=== PATIENT | female | born 1930 | race Caucasian/White ===

== ENCOUNTER 2018-05-09 21:38 | Observation (INO) | payer MEDICARE ==
[2018-05-09] MEDS ORDERED: NS 0.9% 500 ML* 500 ML IV ONE (22:11)
[2018-05-09] MEDS ORDERED: Metoprolol Tartrate IV* 1 MG/ML 5 ML VIAL IV ONE (22:11)
[2018-05-09 22:44] LABS: ABS Basophils 0 10^3/ul (0-0.2); ABS Eosinophils 0 10^3/ul (0-0.6); ABS Lymphocytes 1.3 10^3/ul (1.0-4.8); ABS Monocytes 0.7 10^3/ul (0-0.8); ABS Neutrophils 3.5 10^3/ul (1.5-7.7); ABS Nucleated RBC 0 10^3/ul; Eosinophil % 0.3 % (0-6); Hematocrit 35 % (35-47); Hemoglobin 11.8 g/dl (12.0-16.0); Lymphocyte % 23.8 % (25-47); Mean Corpuscular HGB Conc 34 g/dl (31-36); Mean Corpuscular Hemoglobin 33 pg (27-31); Mean Corpuscular Volume 98 fL (80-97); Mean Platelet Volume 8.7 um3 (7.4-10.4); Nucleated Red Blood Cells % 0.1; Platelet Count 165 10^3/ul (150-450); Red Blood Count 3.52 10^6/ul (4.00-5.40); Red Cell Distribution Width 13 % (10.5-15); White Blood Count 5.6 10^3/ul (3.5-10.8)
[2018-05-09 23:02] LABS: EGFR Non-African American 46.5 (>60)
[2018-05-09] MEDS ORDERED: Nitroglycerin 2% OINT* 1 GM PAK TOPICAL ONE (23:20)
--- NOTE | 2018-05-10 00:24 | HP ---
H&P (Free Text) History and Physical: PCP: Chandler Duncan MD Date/Time: 05/10/2018 0020 CC: chest pain HPI: Mrs Jameson is an 88YO female poor historian HX HTN, palpitations, GERD who presents with gradual onset of moderate non-radiating chest pressure diffusely associated with palpitations, but no SOB, sweating, N/V, or light-headedness. She did note some facial flushing, but no cough, congestion, F/C, headache, or other issues. She noted the pressure was better sitting, worse ambulating. It had resolved earlier in her ED stay, but returned when ambulating to the restroom. She denies CAD/AR or other cardiac history. PMedHx HTN palpitations GERD Medications Nursing to reconcile. Allergies propoxyphene [From Darvon] Allergy (Verified 05/09/18 22:23) GI Upset PSurgHx OU cataract extractions tonsillectomy appendectomy SocHx: mild smoking HX remotely quit, rare alcohol, no recreational drugs; lives with her youngest son; full code status FamHx: reviewed & non-contributory ROS: as above, otherwise reviewed and all were negative vitals: Vital Signs Temp 36.8 C 05/09/18 21:51 Pulse 85 05/10/18 00:00 Resp 16 05/10/18 00:00 BP 152/62 05/09/18 23:57 Pulse Ox 99 05/10/18 00:00 Intake & Output 05/09/18 05/09/18 05/10/18 11:59 23:59 11:59 Weight 48.988 kg Constitutional: NAD, normally developed, well-nourished elderly white female HEENM: atraumatic; sclera/conjunctiva: anicteric/clear; hearing: clinically moderately decreased; oropharynx: clear, mucosa moist Neck: soft tissue: non-tender; thyroid: normal Pulmonary: clear to auscultation bilaterally, good aeration, no accessory muscle use CV: RR/RR, normal S1S2, no carotid bruit, no jugular venous distention, 2+ B DP/ PT, no edema Abdominal: soft, non-distended, non-tender, no rebound/guarding/rigidity, normoactive bowel sounds, no hepatosplenomegaly or masses, no costovertebral angle tenderness Musculoskeletal: general: grossly intact, non-tender Integumental: normal appearance and texture of expose skin Psychiatric orientation: AA&O to PPS affect: calm mood: cooperative eye contact: good content: somewhat reliable memory: mildly impaired responses: timely insight: fair to good Testing: Lab Results 05/09/18 05/09/18 05/09/18 Range/Units 22:37 22:37 22:37 WBC 5.6 (3.5-10.8) 10^3/ul RBC 3.52 L (4.00-5.40) 10^6/ul Hgb 11.8 L (12.0-16.0) g/dl Hct 35 (35-47) % MCV 98 H (80-97) fL MCH 33 H (27-31) pg MCHC 34 (31-36) g/dl RDW 13 (10.5-15) % Plt Count 165 (150-450) 10^3/ul MPV 8.7 (7.4-10.4) um3 Neut % (Auto) 63.5 (38-83) % Lymph % (Auto) 23.8 L (25-47) % [place] % (Auto) 11.8 H (0-7) % Eos % (Auto) 0.3 (0-6) % Baso % (Auto) 0.6 (0-2) % Absolute Neuts (auto) 3.5 (1.5-7.7) 10^3/ul Absolute Lymphs (auto) 1.3 (1.0-4.8) 10^3/ul Absolute Monos (auto) 0.7 (0-0.8) 10^3/ul Absolute Eos (auto) 0 (0-0.6) 10^3/ul Absolute Basos (auto) 0 (0-0.2) 10^3/ul Absolute Nucleated RBC 0 10^3/ul Nucleated RBC % 0.1 Sodium 134 L (135-145) mmol/L Potassium 4.1 (3.5-5.0) mmol/L Chloride 98 L (101-111) mmol/L Carbon Dioxide 28 (22-32) mmol/L Anion Gap 8 (2-11) mmol/L BUN 23 (6-24) mg/dL Creatinine 1.11 H (0.51-0.95) mg/dL Est GFR ( Amer) 56.3 (>60) Est GFR (Non-Af Amer) 46.5 (>60) BUN/Creatinine Ratio 20.7 H (8-20) Glucose 114 H (70-100) mg/dL Lactic Acid 1.2 (0.5-2.0) mmol/L Calcium 9.7 (8.6-10.3) mg/dL Total Bilirubin 0.50 (0.2-1.0) mg/dL AST 24 (13-39) U/L ALT 12 (7-52) U/L Alkaline Phosphatase 77 (34-104) U/L Troponin I 0.04 H* (<0.04) ng/mL Total Protein 7.2 (6.4-8.9) g/dL Albumin 4.1 (3.2-5.2) g/dL Globulin 3.1 (2-4) g/dL Albumin/Globulin Ratio 1.3 (1-3) TSH 3.03 (0.34-5.60) mcIU/mL ECG, personally reviewed: NSR rate 86, no ischemia CXR, personally reviewed: stigmata of COPD, no acute process Impression: 88F HX HTN, palpitations, GERD presenting with atypical chest pain for r/o ACS DIAGNOSIS & PLAN Primary chest pain r/o ACS : telemetry : aspirin : metoprolol given in ED : supplemental oxygen : trend troponin : chemical NST in AM : supportive care Secondary HTN : review meds once reconciled GERD : omeprazole Admission Rational: observation for r/o ACS DVTp: heparin SQ Code Status: full HCP: sonTopher
[2018-05-10] MEDS ORDERED: Albuterol 2.5 MG/3 ML NEB.SOL* (0.083%) INH PRN (01:05)
[2018-05-10] MEDS ORDERED: Acetaminophen TAB* 325 MG PO PRN (01:05)
[2018-05-10] MEDS ORDERED: Ondansetron ODT TAB* 4 MG PO PRN (01:32)
[2018-05-10] MEDS ORDERED: Melatonin 3 MG TAB PO PRN (01:32)
[2018-05-10] MEDS ORDERED: NS 0.9% 1000 ML* 1,000 ML IV SCH (01:45)
[2018-05-10] MEDS: Aspirin 81 mg CHEW TAB* 81 MG TAB.CHEW PO ONE ×2 (02:23→02:32)
[2018-05-10] MEDS ORDERED: Omeprazole CAP* 20 MG PO SCH (06:00)
--- NOTE | 2018-05-10 06:11 | ED ---
David Ravi Tiffany, scribed for Lam Wheeler MD on 05/09/18 at 2213 . HPI Chest Pain - HPI Summary HPI Summary: 88 year old F BIBA to [facility] complains of heart pounding since 20:00 while standing in the dining room. Symptoms aggravated by nothing. Symptoms alleviated by nothing. Patient reports chest pressure below sternum, fast heart rate. Denies SOB, diaphoresis, dizziness. Given 324mg aspirin en route. - History of Current Complaint Chief Complaint: EDChestWallPain Time Seen by Provider: 05/09/18 21:58 Hx Obtained From: Patient Onset/Duration: Started Hours Ago - 20:00 today, Still Present Timing: Constant Character: Pounding, Pressure/Squeezing Aggravating Factor(s): Nothing Alleviating Factor(s): Nothing Associated Signs and Symptoms: Positive: Other: - chest pressure below sternum, fast heart rate. - Allergy/Home Medications Allergies/Adverse Reactions: Allergies Allergy/AdvReac Type Severity Reaction Status Date / Time propoxyphene [From Darvon] AdvReac GI Upset Verified 05/10/18 01:00 PMH/Surg Hx/FS Hx/Imm Hx Previously Healthy: No Cardiovascular History: Reports: Other Cardiovascular Problems/Disorders - heart murmur GI History: Reports: Hx Hiatal Hernia Musculoskeletal History: Reports: Hx Arthritis, Hx Osteoporosis - Surgical History Surgery Procedure, Year, and Place: Tonsillectomy as child. Appendectomy. Tubal ligation 1966. Angiogram 1996 Infectious Disease History: No Infectious Disease History: Denies: Traveled Outside the [place] in Last 30 Days - Family History Known Family History: Negative: Renal Disease, Blood Disorder - Social History Smoking Status (MU): Unknown if Ever Smoked Review of Systems Negative: Skin Diaphoresis Positive: Other - heart pounding, chest pressure below sternum, fast heart rate Negative: Shortness Of Breath Neurological: Negative - Dizziness All Other Systems Reviewed And Are Negative: Yes Physical Exam - Summary Physical Exam Summary: Appearance: Well appearing, no pain distress Skin: warm, dry, reflects adequate perfusion Head/face: normal Eyes: EOMI, KENDALL ENT: normal Neck: supple, non-tender Respiratory: CTA, breath sounds present Cardiovascular: Heart was occasionally irregular. No JVD Abdomen: non-tender, soft Bowel Sounds: present Musculoskeletal: normal, strength/ROM intact Neuro: normal, sensory motor intact, A&Ox3 Triage Information Reviewed: Yes Vital Signs On Initial Exam: Initial Vitals Temp Pulse Resp BP Pulse Ox 98.2 F 94 20 163/76 99 05/09/18 21:51 05/09/18 21:51 05/09/18 21:51 05/09/18 21:51 05/09/18 21:51 Vital Signs Reviewed: Yes Diagnostics - Vital Signs Vital Signs Temp Pulse Resp BP Pulse Ox 05/09/18 21:51 98.2 F 94 20 163/76 99 - Laboratory Lab Results: Lab Results 05/09/18 05/09/18 05/09/18 Range/Units 22:37 22:37 22:37 WBC 5.6 (3.5-10.8) 10^3/ul RBC 3.52 L (4.00-5.40) 10^6/ul Hgb 11.8 L (12.0-16.0) g/dl Hct 35 (35-47) % MCV 98 H (80-97) fL MCH 33 H (27-31) pg MCHC 34 (31-36) g/dl RDW 13 (10.5-15) % Plt Count 165 (150-450) 10^3/ul MPV 8.7 (7.4-10.4) um3 Neut % (Auto) 63.5 (38-83) % Lymph % (Auto) 23.8 L (25-47) % [place] % (Auto) 11.8 H (0-7) % Eos % (Auto) 0.3 (0-6) % Baso % (Auto) 0.6 (0-2) % Absolute Neuts (auto) 3.5 (1.5-7.7) 10^3/ul Absolute Lymphs (auto) 1.3 (1.0-4.8) 10^3/ul Absolute Monos (auto) 0.7 (0-0.8) 10^3/ul Absolute Eos (auto) 0 (0-0.6) 10^3/ul Absolute Basos (auto) 0 (0-0.2) 10^3/ul Absolute Nucleated RBC 0 10^3/ul Nucleated RBC % 0.1 Sodium 134 L (135-145) mmol/L Potassium 4.1 (3.5-5.0) mmol/L Chloride 98 L (101-111) mmol/L Carbon Dioxide 28 (22-32) mmol/L Anion Gap 8 (2-11) mmol/L BUN 23 (6-24) mg/dL Creatinine 1.11 H (0.51-0.95) mg/dL Est GFR ( Amer) 56.3 (>60) Est GFR (Non-Af Amer) 46.5 (>60) BUN/Creatinine Ratio 20.7 H (8-20) Glucose 114 H (70-100) mg/dL Lactic Acid 1.2 (0.5-2.0) mmol/L Calcium 9.7 (8.6-10.3) mg/dL Total Bilirubin 0.50 (0.2-1.0) mg/dL AST 24 (13-39) U/L ALT 12 (7-52) U/L Alkaline Phosphatase 77 (34-104) U/L Troponin I 0.04 H* (<0.04) ng/mL Total Protein 7.2 (6.4-8.9) g/dL Albumin 4.1 (3.2-5.2) g/dL Globulin 3.1 (2-4) g/dL Albumin/Globulin Ratio 1.3 (1-3) TSH 3.03 (0.34-5.60) mcIU/mL 05/10/18 Range/Units 00:51 WBC (3.5-10.8) 10^3/ul RBC (4.00-5.40) 10^6/ul Hgb (12.0-16.0) g/dl Hct (35-47) % MCV (80-97) fL MCH (27-31) pg MCHC (31-36) g/dl RDW (10.5-15) % Plt Count (150-450) 10^3/ul MPV (7.4-10.4) um3 Neut % (Auto) (38-83) % Lymph % (Auto) (25-47) % [place] % (Auto) (0-7) % Eos % (Auto) (0-6) % Baso % (Auto) (0-2) % Absolute Neuts (auto) (1.5-7.7) 10^3/ul Absolute Lymphs (auto) (1.0-4.8) 10^3/ul Absolute Monos (auto) (0-0.8) 10^3/ul Absolute Eos (auto) (0-0.6) 10^3/ul Absolute Basos (auto) (0-0.2) 10^3/ul Absolute Nucleated RBC 10^3/ul Nucleated RBC % Sodium (135-145) mmol/L Potassium (3.5-5.0) mmol/L Chloride (101-111) mmol/L Carbon Dioxide (22-32) mmol/L Anion Gap (2-11) mmol/L BUN (6-24) mg/dL Creatinine (0.51-0.95) mg/dL Est GFR ( Amer) (>60) Est GFR (Non-Af Amer) (>60) BUN/Creatinine Ratio (8-20) Glucose (70-100) mg/dL Lactic Acid (0.5-2.0) mmol/L Calcium (8.6-10.3) mg/dL Total Bilirubin (0.2-1.0) mg/dL AST (13-39) U/L ALT (7-52) U/L Alkaline Phosphatase (34-104) U/L Troponin I 0.09 H* (<0.04) ng/mL Total Protein (6.4-8.9) g/dL Albumin (3.2-5.2) g/dL Globulin (2-4) g/dL Albumin/Globulin Ratio (1-3) TSH (0.34-5.60) mcIU/mL Result Diagrams: 05/09/18 22:37 05/09/18 22:37 Lab Statement: Any lab studies that have been ordered have been reviewed, and results considered in the medical decision making process. - Radiology CXR Radiology Interpretation Completed By: ED Physician - Chronic changes, no acute changes. Pending official report. - EKG 22:25 Cardiac Rate: NL - 86 BPM EKG Rhythm: Sinus Rhythm ST Segment: Non-Specific EKG Interpretation: Baseline wander, artifact. Eschemia in inferior leads, no depression Re-Evaluation - Re-Evaluation First Eval Re-Evaluation Time: 23:20 Comment: No real changes to sypmtoms with beta scott. Patient was feeling fine but then got up and felt the same heart pounding. Chest Pain Course/Dx - Course Course Of Treatment: Patient experiencing a pounding heartbeat though a normal rate. She has had chest pain associated with this. Her first troponin is slightly elevated though she has a somewhat depressed renal function. She is still having symptoms with slight exertion. As such, the hospitalist was contacted evaluated the patient and will admit to the telemetry service. - Chest Pain Differential Diagnosis/HQI/PQRI: Acute MN, ACS, Angina, Lower Respiratory Infection, Other: - A malignant arrhythmia - Diagnoses Provider Diagnoses: Palpitations, Chest pain - Provider Notifications Discussed Care Of Patient With: Kaleb Chow Time Discussed With Above Provider: 23:30 Instructed by Provider To: Other - Dr. Chow, hospitalist, agrees to admit patient. Discharge - Sign-Out/Discharge Documenting (check all that apply): Discharge/Admit/Transfer - Admit - Discharge Plan Condition: Guarded Disposition: ADMITTED TO [facility] - Billing Disposition and Condition Condition: GUARDED Disposition: Admitted to [facility] The documentation as recorded by the David killian Tiffany accurately reflects the service I personally performed and the decisions made by Summer perez Kirk, MD.
--- NOTE | 2018-05-10 06:12 | RAD ---
INDICATION: Chest pain COMPARISON: Chest x-ray March 18, 2004 TECHNIQUE: Single AP portable view of the chest was obtained. FINDINGS: Image quality is compromised due to the relative inferiority of a portable chest x-ray. The heart and mediastinum exhibit normal size and contour. The lungs appear hyperaerated in the AP projection. Otherwise the lungs are grossly clear. There is no evidence of a large pleural effusion. Visualized bones are normal for the patient's age. IMPRESSION: No radiographic evidence for acute cardiopulmonary abnormality on this portable chest x-ray.
[2018-05-10 06:26] LABS: Hematocrit 35 % (35-47); Mean Corpuscular HGB Conc 35 g/dl (31-36); Mean Corpuscular Hemoglobin 34 pg (27-31); Mean Corpuscular Volume 98 fL (80-97); Mean Platelet Volume 8.4 um3 (7.4-10.4); Platelet Count 165 10^3/ul (150-450); Red Blood Count 3.55 10^6/ul (4.00-5.40); Red Cell Distribution Width 13 % (10.5-15); White Blood Count 6.8 10^3/ul (3.5-10.8)
[2018-05-10 06:35] LABS: INR 0.95 (0.77-1.02)
--- NOTE | 2018-05-10 08:14 | PN ---
Subjective Date of Service: 05/10/18 Interval History: Ms. Jameson denies complaint and is happy with the plan for discharge to home. She has had no further chest pain today. Objective Active Medications: Acetaminophen (Tylenol Tab*) 650 mg PO Q6H PRN Albuterol (Ventolin 2.5 Mg/3 Ml Neb.Rosaura*) 2.5 mg INH Q2H PRN Aspirin (Aspirin Ec Tab*) 81 mg PO DAILY [facility] Docusate Sodium (Colace Cap*) 200 mg PO BID [facility] Heparin Sodium (Porcine) (Heparin Vial(*)) 5,000 units SUBCUT Q8HR [facility] Sodium Chloride (Ns 0.9% 1000 Ml*) 1,000 mls @ 50 mls/hr IV PER RATE [facility] Melatonin (Melatonin) 3 mg PO BEDTIME PRN; Protocol Omeprazole (Prilosec Cap*) 20 mg PO DAILY@0600 [facility] Ondansetron HCl (Zofran Odt Tab*) 4 mg PO Q6H PRN Vital Signs: Temp Pulse Resp BP Pulse Ox 98.2 F 69 18 136/51 98 05/10/18 03:15 05/10/18 03:15 05/10/18 03:15 05/10/18 03:15 05/10/18 03:15 Oxygen Devices in Use Now: None Appearance: Female lying in bed in NAD Eyes: No Scleral Icterus Ears/Nose/Mouth/Throat: Mucous Membranes Moist Neck: Trachea Midline Respiratory: Symmetrical Chest Expansion and Respiratory Effort, Clear to Auscultation Cardiovascular: NL Sounds; No Murmurs; No JVD, No Edema Abdominal: NL Sounds; No Tenderness; No Distention Lymphatic: No Cervical Adenopathy Extremities: No Edema Skin: No Rash or Ulcers Neurological: Alert and Oriented x 3, NL Muscle Strength and Tone Nutrition: Taking PO's Result Diagrams: 05/10/18 06:13 05/10/18 06:13 Additional Lab and Data: . Assess/Plan/Problems-Billing Assessment: Ms. Jameson is an 88 yo F with a PMH of hypertension, palpitations, and GERD who was admitted on 05/09/18 with atypical chest pain to rule out ACS. - Patient Problems (1) Chest pain Comment: - No further chest pain. - Trop peaked at 0.09. - EKG without clear evidence of ischemia, but with significantly wandering baseline, repeat without ischemia. - Stress test low risk. - Unclear cause of pain, but no evidence of ischemic cardiac disease via testing. (2) Hypertension Comment: - SBP 130s. - Not on home meds. (3) GERD (gastroesophageal reflux disease) Comment: - No clear symptoms. (4) DVT prophylaxis Comment: - Heparin SQ. (5) Full code status Status and Disposition: OBV. Discharge to home.
[2018-05-10] MEDS ORDERED: Docusate CAP* 100 MG PO SCH (09:00)
[2018-05-10] MEDS ORDERED: Regadenoson* 0.4 MG/5 ML SYRINGE ONE (09:52)
[2018-05-10] MEDS ORDERED: Aminophylline IV* 25 MG/ML 10 ML VIAL ONE (11:14)
[2018-05-10] MEDS ORDERED: Potassium Chlor TAB* 20 MEQ TAB.ER PO ONE (12:12)
--- NOTE | 2018-05-10 13:42 | RAD ---
Edited for charges. Indication: Chest pressure. Myocardial perfusion scan was performed utilizing 1 day protocol. Rest myocardial perfusion was performed after intravenous injection of 10.6 mCi of technetium 99 and tetrofosmin. Pharmacological stress was applied and 25.2 mCi of technetium 99m tetrofosmin was injected for the stress portion of the study. There is homogeneous distribution of the radiotracer throughout the left ventricle. There is no evidence of any fixed or reversible perfusion defect identified. The ejection fraction at stress is 95%. Evaluation of wall motion shows no focal wall motion abnormality. IMPRESSION: No fixed or reversible perfusion defect is noted. Normal ejection fraction of 95% with no focal wall motion abnormality. ASSESSMENT: Low risk Based on imaging criteria from ACC/AHA 2002 Guideline Update for the Management of Patients With Chronic Stable Angina Table 23. Noninvasive Risk Stratification. MTDD
[2018-05-10] MEDS ORDERED: Heparin VIAL(*) 5000 UNITS/ML VIAL (FIVE THOUSAND) SUBCUT SCH (14:00)
[2018-05-10 16:09] VITALS: BP 115/55
--- NOTE | 2018-05-10 23:29 | DS ---
CC: Dr. Adry Duncan * HOSPITAL MEDICINE DISCHARGE SUMMARY: DATE OF ADMISSION: 05/09/18 DATE OF DISCHARGE: 05/10/18 PRIMARY CARE PHYSICIAN: Dr. Adry Duncan. ATTENDING PHYSICIAN: Dr. Luis Antonio Duncan * (dictation provided by Whit Alberts NP ). PRIMARY DIAGNOSIS: Chest pain, atypical. SECONDARY DIAGNOSES: 1. Hypertension. 2. Gastroesophageal reflux disease. MEDICATIONS AT THE TIME OF DISCHARGE: Appears the patient is only on triamterene/hydrochlorothiazide 37.5/25 two capsules by mouth daily based on records from the patient's pharmacy. HOSPITAL COURSE: Ms. Jameson is an 88-year-old female with a past medical history of hypertension and GERD, who presents to the hospital on 05/10/18 with concern for chest pain. Please see the dictated H and P from Dr. Kaleb Chow for complete details. In brief, the patient reports that she was sitting at home on the couch when she had the sudden onset of midsternal to epigastric chest discomfort. She described it in the emergency room as being worse with ambulating, but with me she stated that it did not change. It was not associated with palpitations, shortness of breath, sweating, nausea, vomiting, or lightheadedness. Ms. Jameson had troponins which were as follows: 0.04, 0.09, and 0.08. She had an initial EKG that showed no evidence of ischemia, but as there was some baseline wander, I did repeat the EKG and that also was sinus rhythm to sinus bradycardia with no evidence of ischemia. She went on for a nuclear medicine stress test that was read as low risk with no fixed reversible perfusion defect noted and normal ejection fraction of 95% with no focal wall motion abnormality was seen. Ms. Jameson has remained chest pain free throughout her hospitalization. She has had this mild peak in her troponins. I questioned whether or not this is related to some very mild kidney disease, but clearly her workup including her EKG and stress test were negative. Ms. Jameson is medically stable for discharge to home to follow up with Dr. Duncan. DISPOSITION: Home. DIET: Low salt. ACTIVITY: As tolerated. FOLLOWUP PLANS: Please follow up with Dr. Duncan per routine after this observation stay in the hospital for chest pain. TIME SPENT: Approximately 60 minutes were spent on the discharge of this patient, more than half of that time spent with the patient at the bedside reviewing the events leading up to this hospitalization, performing the physical examination, and reviewing my plan of care. WHIT ALBERTS NP [id number]/[facility] #: [id number] MTDD
[2018-05-11] MEDS ORDERED: Aspirin EC TAB* 81 MG TAB.EC PO SCH (09:00)
== END 2018-05-10 16:54 | disposition home or self-care (01) ==
LOC: ED 21:38 → MEDTELE 05-10 00:52
PROVIDERS: ADMIT Hospitalist; ATTEND Internal Medicine
DX: R07.89 Other chest pain (principal); I10 Essential (primary) hypertension; K21.9 Gastro-esophageal reflux disease without esophagitis; R00.2 Palpitations; Z79.899 Other long term (current) drug therapy; F17.210 Nicotine dependence, cigarettes, uncomplicated; R94.31 Abnormal electrocardiogram [ECG] [EKG]
CPT/HCPCS: 36415; 71045; 78452; 80048; 80053; 83605; 84443; 84484; 85025; 85027; 85610; 85730; 93005; 93017; 96372; 96374; 99285; A9270-GY; A9502; G0378; J0280; J1644; J2785; J3490

== ENCOUNTER 2020-02-24 17:34 | Inpatient (IN) | payer MEDICARE, OTHER ==
--- OUTSIDE RECORDS SUMMARY | 2020-02-24 17:51 | XMS REPORT | Continuity of Care Document ---
:1930 External Reference #:[id number] Author Name Blane Kennedy M.D. (transmitted by agent of provider Tami Quintanilla) Address [address] [place] [id number] Care Team Providers Name Role Phone Angelica Millan MD - Care Team Information Nursing Staff Development Coordinator [phone] Cardiovascular Disease Adry Duncan M.D. - Family Medicine Care Team Information Nursing Staff Development Coordinator [phone] Problems Active Problems Provider Date Benign essential hypertension Will Hunter M.D. Onset: 09/03/2006 Gastroesophageal reflux disease Will Hunter M.D. Onset: 09/03/2006 Meniere's disease Will Hunter M.D. Onset: 09/03/2006 Edema Will Hunter M.D. Onset: 09/03/2006 Arthropathy Will Hunter M.D. Onset: 09/03/2006 Restless legs Will Hunter M.D. Onset: 12/05/2006 Irritable bowel syndrome Will Hunter M.D. Onset: 12/05/2006 Allergic rhinitis Will Hunter M.D. Onset: 10/28/2008 Osteoporosis Will Hunter M.D. Onset: 04/18/2010 Palpitations Will Hunter M.D. Onset: 11/09/2011 Malaise and fatigue Will Hunter M.D. Onset: 11/09/2011 Paroxysmal atrial fibrillation Adry Duncan M.D. Onset: 02/07/2018 Dementia Adry Duncan M.D. Onset: 02/16/2020 Acute bronchitis Blane Kennedy M.D. Onset: 02/23/2020 Social History Type Date Description Comments Sex Unknown Tobacco Use Start: Unknown End: Unknown Former Cigarette Smoker Smoking Status Reviewed: 01/19/20 Former Cigarette Smoker ETOH Use Rare Tobacco Use Start: Unknown Patient has never smoked Allergies, Adverse Reactions, Alerts Active Allergies Reaction Severity Comments Date Darvon Compound GI upset Medications Active Medications SIG Qnty Indications Ordering Provider Date Cefuroxime Axetil 1 by mouth 14tabs Blane BarbaFransisco Kennedy, 02/23/2020 250mg twice a day M.DFransisco Tablets Torsemide 1 po qod 45tabs Adry Duncan M.D. 02/16/2020 20mg Tablets Triamterene/Hydrochlor 1 by mouth 90caps Blane BarbaFransisco Kennedy, othiazide every day M.DFransisco 37.5-25mg Capsules Medications Administered in Office Medication SIG Qnty Indications Ordering Provider Date H1N1 MDCR vaccine any route Will Hunter M.D. 12/07/2009 Injection Immunizations CPT Code Status Date Vaccine Lot # [id number] Given 11/27/2019 High-Dose, Influenza Virus Vacccine-fluzone 65 [id number] and older 28465 Given 09/25/2018 High-Dose, Influenza Virus Vacccine-fluzone 65 [id number] and older 85855 Given 09/20/2017 High-Dose, Influenza Virus Vacccine-fluzone 65 [id number] and older 06651 Given 10/13/2016 High-Dose, Influenza Virus Vacccine-fluzone 65 [id number] and older 40939 Given 09/09/2015 High-Dose, Influenza Virus Vacccine-fluzone 65 [id number] and older Q2038 Given 09/15/2011 Split Influenza Medicare: Fluzone 40988 Given 09/22/2010 DO Not Use Split Influenza Virus Vaccine [id number] 05459 Given 10/28/2008 DO Not Use Split Influenza Virus Vaccine [id number] 63899 Given 09/24/2007 DO Not Use Split Influenza Virus Vaccine [id number] 37757 Given 09/29/2006 DO Not Use Split Influenza Virus Vaccine [id number] 24462 Given 09/02/2005 DO Not Use Split Influenza Virus Vaccine 71817 Given 07/05/2004 Td Immunization, For Use In Individuals 7 Years Or Older 63411 Given 07/05/2004 Td Immunization, For Use In Individuals 7 Years Or Older 89754 Given 08/19/2003 DO Not Use Split Influenza Virus Vaccine 10648 Given 09/10/2002 Pneumococcal Immunization 51817 Given 09/10/2002 DO Not Use Split Influenza Virus Vaccine 65369 Given 10/08/2001 Pneumococcal Immunization 06513 Given 09/06/2001 DO Not Use Split Influenza Virus Vaccine 25606 Given 08/23/1999 Influenza Immunization 84224 Given 09/14/1998 Influenza Immunization 51867 Given 07/27/1997 Influenza Immunization Vital Signs Date Vital Result Comment 02/23/2020 11:32am BP Systolic 122 mmHg BP Diastolic 80 mmHg Heart Rate 70 /min Body Temperature 98.1 F Respiratory Rate 20 /min O2 % BldC Oximetry 93 % 02/16/2020 11:14am BP Systolic 126 mmHg BP Diastolic 68 mmHg Heart Rate 68 /min Body Temperature 97.4 F Respiratory Rate 18 /min Weight 105.00 lb Results Test Acquired Date Facility Test Result H/L Range Note Laboratory test 02/16/2020 Eduar Arpita([facility]) TSH 3.61 mIU/L 0.50-6.00 finding Magnesium, Serum 1.9 mEq/L 1.2-2.1 CBC Electronic Fma 02/16/2020 Eduar Arpita([facility]) WBC 5.5 x10^3/UL 4.0- 10.0 RBC 3.54 x10^6/UL Low 3.93-6.00 HGB 12.1 g/dL 12.0-17.0 HCT 34 % Low 35-50 MCV 95.8 fL High 80.0-95.0 MCH 34.2 pg High 25.6-32.2 MCHC 35.7 g/dL 32.2-36.0 RDW-CV 11.8 % 11.6-14.4 PLT 223 x10^3/UL 163-400 MPV 9.4 fL 9.4-12.4 Shobha# 2.83 x10^3/UL 1.56-6.13 Lymph# 1.90 x10^3/UL 1.18-3.74 [place]# 0.57 x10^3/UL 0.24-0.82 Eos # 0.1 x10^3/UL 0.0-0.5 Baso # 0.03 x10^3/UL 0.01-0.08 Shobha% 51.9 % 34.0-70.0 Lymph % 34.7 % 20.0-52.0 [place]% 10.4 % 5.0-12.0 Eos% 2.0 % 0.7-7.0 Baso% 0.5 % 0.1-1.2 Comprehensive Metabolic 02/16/2020 Edu[facility] Palm([facility]) Sodium 139 mEq/L 134-149 Prof Potassium 4.6 mEq/L 3.6-5.5 Chloride 103 mEq/L 94-112 Carbon Dioxide 22 mEq/L 21-32 Glucose 117 mg/dL High 70-105 BUN 20 mg/dL 6-26 Creatinine 1.0 mg/dL 0.6-1.4 BUN/Creat Ratio 20.0 CALC 8.0-36.0 Calcium 9.6 mg/dL 8.9-10.6 Total Protein 7.2 g/dL 6.4-8.3 Albumin 4.4 g/dL 3.8-5.5 Globulin 2.8 g/dL 2.0-4.8 A/G Ratio 1.6 CALC 0.6-2.3 Alk. Phosphatase 104 U/L 30-110 Alt (SGPT) 15 U/L 7-35 Ast (Sgot) 34 U/L 5-34 Total Bilirubin 0.5 mg/dL 0.2-1.3 GFR Non- 55 ml/min/1.73m^ Low >=60 GFR >60 ml/min/1.73m^ >=60 Procedures Date Code Description Status 01/17/2012 [id number] Mammogram Completed 10/22/2009 [id number] Mammogram Completed 10/12/2009 [id number] Bone Mineral Density Test Completed 06/08/2008 [id number] Mammogram Completed 12/10/2006 [id number] Mammogram Completed 11/12/2001 [id number] Colonoscopy Completed Medical Devices Description No Information Available Encounters Type Date Location Provider Dx Diagnosis Office Visit 02/23/2020 [facility] Blane Kennedy, J20.9 Acute bronchitis, 11:00a M.D. unspecified R60.0 Localized edema Office Visit 02/16/2020 11:10a [facility] Adry Duncan, I10 Essential (primary) M.D. hypertension R60.0 Localized edema F02.80 Dementia in oth diseases classd elswhr w/o behavrl disturb Office Visit 2020 2:30p [facility] Temitope R60.0 Localized edema Belkysadrianna, Afnp-C I10 Essential (primary) hypertension Assessments Date Code Description Provider 02/23/2020 J20.9 Acute bronchitis, unspecified Blane Kennedy M.D. 02/23/2020 R60.0 Localized edema Blane Kennedy M.D. 02/16/2020 I10 Essential (primary) hypertension Adry Duncan M.D. 02/16/2020 R60.0 Localized edema Adry Duncan M.D. 02/16/2020 F02.80 Dementia in other diseases classified Adry Duncan M.D. elsewhere without behavioral disturbance 2020 R60.0 Localized edema Tyler Pereyra-Chandler 2020 I10 Essential (primary) hypertension Tyler Pereyra-Chandler 11/27/2019 Z23 Encounter for immunization Adry Duncan M.D. Plan of Treatment Future Appointment(s):03/01/2020 1:20 pm - Adry Duncan M.D. at [facility] Pnuyrv7902/23/2020 - Blane Kennedy M.D.J20.9 Acute bronchitis, unspecifiedNew Labs:Flu A&B ([facility]), Ordered: 02/23/20Comments:noted to have purulent sputum for 2 days, normal exam here today will start on cefuroxime 250 mg bidfor one week,and will follow up with Dr Duncan in one weekR60.0 Localized edemaComments: much improved after starting on torsemide, blood pressure is fine here today, will continue present medication, to go to qod torsemide Wed 02/24AllNew Medication:Cefuroxime Axetil 250 mg - 1 by mouth twice a dayFollow up:Dr Duncan in one week, Dr Millan in near future Functional Status Description No Information Available Mental Status Description No Information Available Referrals Description No Information Available
--- OUTSIDE RECORDS SUMMARY | 2020-02-24 17:51 | XMS REPORT | Continuity of Care Document ---
:1930 External Reference #:[id number] Author Name Christine Pereyra Address [address] [place] [address] Care Team Providers Name Role Phone Angelica Millan MD - Care Team Information Supervisor Fertilizer Processing [phone] Cardiovascular Disease Adry Duncan M.D. - Family Medicine Care Team Information Supervisor Fertilizer Processing Problems Active Problems Provider Date Benign essential hypertension Will Hunter M.D. Onset: 09/03/2006 Gastroesophageal reflux disease Will Hunter M.D. Onset: 09/03/2006 Meniere's disease Will Hunter M.D. Onset: 09/03/2006 Edema Will Hunter M.D. Onset: 09/03/2006 Arthropathy Will Hunter M.D. Onset: 09/03/2006 Gastroduodenitis Will Hunter M.D. Onset: 09/03/2006 Atrial fibrillation Will Hunter M.D. Onset: 09/03/2006 Restless legs Will Hunter M.D. Onset: 12/05/2006 Irritable bowel syndrome Will Hunter M.D. Onset: 12/05/2006 Benign paroxysmal positional vertigo Will Hunter M.D. Onset: 10/28/2008 Allergic rhinitis Will Hunter M.D. Onset: 10/28/2008 Osteoporosis Will Hunter M.D. Onset: 04/18/2010 Palpitations Will Hunter M.D. Onset: 11/09/2011 Malaise and fatigue Will Hunter M.D. Onset: 11/09/2011 Paroxysmal atrial fibrillation Adry Duncan M.D. Onset: 02/07/2018 Social History Type Date Description Comments Sex Unknown Tobacco Use Start: Unknown End: Unknown Former Cigarette Smoker Smoking Status Reviewed: 01/19/20 Former Cigarette Smoker ETOH Use Rare Tobacco Use Start: Unknown Patient has never smoked Allergies, Adverse Reactions, Alerts Active Allergies Reaction Severity Comments Date Darvon Compound GI upset Medications Active Medications SIG Qnty Indications Ordering Provider Date Ranitidine HCL Take One Tablet 60tabs Juan Hensley 03/28/2019 150mg By Mouth Twice A MD Neto Tablets Day as Needed Diflunisal Take One Tablet 60tabs Pastora Zenia 01/04/2012 500mg By Mouth Twice A TAMMY Perkins Tablets Day as Needed Dyazide Take one Every 60caps Adry Duncan M.D. 06/22/2004 37.5-25mg Day Capsules Medications Administered in Office Medication SIG Qnty Indications Ordering Provider Date H1N1 MDCR vaccine any route Will Hunter M.D. 12/07/2009 Injection Immunizations CPT Code Status Date Vaccine Lot # [id number] Given 11/27/2019 High-Dose, Influenza Virus Vacccine-fluzone 65 [id number] and older 25384 Given 09/25/2018 High-Dose, Influenza Virus Vacccine-fluzone 65 [id number] and older 62682 Given 09/20/2017 High-Dose, Influenza Virus Vacccine-fluzone 65 [id number] and older 85189 Given 10/13/2016 High-Dose, Influenza Virus Vacccine-fluzone 65 [id number] and older 90916 Given 09/09/2015 High-Dose, Influenza Virus Vacccine-fluzone 65 [id number] and older Q2038 Given 09/15/2011 Split Influenza Medicare: Fluzone 75321 Given 09/22/2010 DO Not Use Split Influenza Virus Vaccine [id number] 04245 Given 10/28/2008 DO Not Use Split Influenza Virus Vaccine [id number] 20220 Given 09/24/2007 DO Not Use Split Influenza Virus Vaccine [id number] 01806 Given 09/29/2006 DO Not Use Split Influenza Virus Vaccine [id number] 18151 Given 09/02/2005 DO Not Use Split Influenza Virus Vaccine 79063 Given 07/05/2004 Td Immunization, For Use In Individuals 7 Years Or Older 68306 Given 07/05/2004 Td Immunization, For Use In Individuals 7 Years Or Older 91346 Given 08/19/2003 DO Not Use Split Influenza Virus Vaccine 94526 Given 09/10/2002 Pneumococcal Immunization 55549 Given 09/10/2002 DO Not Use Split Influenza Virus Vaccine 14202 Given 10/08/2001 Pneumococcal Immunization 48740 Given 09/06/2001 DO Not Use Split Influenza Virus Vaccine 67581 Given 08/23/1999 Influenza Immunization 89574 Given 09/14/1998 Influenza Immunization 01101 Given 07/27/1997 Influenza Immunization Vital Signs Date Vital Result Comment 2020 2:21pm BP Systolic 162 mmHg BP Diastolic 60 mmHg Heart Rate 72 /min Body Temperature 98.1 F Respiratory Rate 16 /min Height 57 inches 4'9" Weight 107.25 lb slippers on BMI (Body Mass Index) 23.2 kg/m2 06/19/2019 1:57pm BP Systolic 126 mmHg BP Diastolic 58 mmHg Heart Rate 72 /min Body Temperature 98.4 F Respiratory Rate 16 /min Height 57 inches 4'9" Weight 98.00 lb BMI (Body Mass Index) 21.2 kg/m2 Results Description No Information Available Procedures Date Code Description Status 01/17/2012 [id number] Mammogram Completed 10/22/2009 [id number] Mammogram Completed 10/12/2009 [id number] Bone Mineral Density Test Completed 06/08/2008 [id number] Mammogram Completed 12/10/2006 [id number] Mammogram Completed 11/12/2001 [id number] Colonoscopy Completed Medical Devices Description No Information Available Encounters Description No Information Available Assessments Date Code Description Provider 2020 R60.0 Localized edema Christine Pereyra 2020 I10 Essential (primary) hypertension Christine Pereyra 11/27/2019 Z23 Encounter for immunization Adry Duncan M.D. Plan of Treatment Future Appointment(s):02/16/2020 3:20 pm - Adry Duncan M.D. at [facility] Xfbjgi3507/2020 - Tyler Pereyra-CR60.0 Localized edemaFollow up:Followup:. ( Follow up)I10 Essential (primary) hypertensionAllComments:Medication Management Patient Understands medications she's taking? Yes No unclear Are thereBarriers to Adherence? Yes No dementia Has the patient been asked about herbal supplements and therapies, and OTC meds? Yes No Care Plan1. Patient has been queried about patient's goals/preferences and functional/lifestyle goals at relevant visits. If relevant, describe: na2.Treatment goals as explained to the patient: abovenormotension decrease edema , good skin care 3. Are there barriers to meeting treatment goals? Yes No If Yes, please describe:compliance 4. Self-Management goals as described to the patient: Yes No and daughter Dr Duque was into seept : advised gentle cleansing feet and leg with application of emmoillents 1-2 x week keep feet elevated when able moniter medications and pt's compliance ( apparently dyazide has been filled by Dr Stevens) pt has podiatry f/u with Dr Palomino f/u with pcp Functional Status Description No Information Available Mental Status Description No Information Available Referrals Description No Information Available
--- OUTSIDE RECORDS SUMMARY | 2020-02-24 17:51 | XMS REPORT | Continuity of Care Document ---
:1930 External Reference #:[id number] Author Name Adry Duncan M.D. Address [address] [place] [address] Care Team Providers Name Role Phone Angelica Millan MD - Care Team Information Geophysical Support Specialist [phone] Cardiovascular Disease Adry Duncan M.D. - Family Medicine Care Team Information Geophysical Support Specialist Problems Active Problems Provider Date Benign essential [...] and fatigue Will Hunter M.D. Onset: 11/09/2011 Dementia Adry Duncan M.D. Onset: 02/16/2020 Paroxysmal atrial fibrillation Adry Duncan M.D. Onset: [...] Medications SIG Qnty Indications Ordering Provider Date Torsemide 1 po qod 45tabs Adry Duncan M.D. 02/16/2020 20mg Tablets Triamterene/Hydrochlor 1 by mouth Unknown othiazide every day 37.5-25mg Capsules Medications Administered in Office Medication SIG Qnty Indications Ordering Provider Date H1N1 MDCR vaccine any route Will Hunter M.D. 12/07/2009 Injection Immunizations CPT Code Status Date Vaccine Lot # [id number] Given 11/27/2019 High-Dose, Influenza Virus Vacccine-fluzone 65 [id number] and older 11094 Given 09/25/2018 High-Dose, Influenza Virus Vacccine-fluzone 65 [id number] and older 02565 Given 09/20/2017 High-Dose, Influenza Virus Vacccine-fluzone 65 [id number] and older 72531 Given 10/13/2016 High-Dose, Influenza Virus Vacccine-fluzone 65 [id number] and older 41118 Given 09/09/2015 High-Dose, Influenza Virus Vacccine-fluzone 65 [id number] and older Q2038 Given 09/15/2011 Split Influenza Medicare: Fluzone 00822 Given 09/22/2010 DO Not Use Split Influenza Virus Vaccine [id number] 43798 Given 10/28/2008 DO Not Use Split Influenza Virus Vaccine [id number] 27144 Given 09/24/2007 DO Not Use Split Influenza Virus Vaccine [id number] 10519 Given 09/29/2006 DO Not Use Split Influenza Virus Vaccine 99187 72361 Given 09/02/2005 DO Not Use Split Influenza Virus Vaccine 38290 Given 07/05/2004 Td Immunization, For Use In Individuals 7 Years Or Older 40917 Given 07/05/2004 Td Immunization, For Use In Individuals 7 Years Or Older 49574 Given 08/19/2003 DO Not Use Split Influenza Virus Vaccine 92079 Given 09/10/2002 Pneumococcal Immunization 20871 Given 09/10/2002 DO Not Use Split Influenza Virus Vaccine 01419 Given 10/08/2001 Pneumococcal Immunization 54758 Given 09/06/2001 DO Not Use Split Influenza Virus Vaccine 30404 Given 08/23/1999 Influenza Immunization 64700 Given 09/14/1998 Influenza Immunization 34505 Given 07/27/1997 Influenza Immunization Vital Signs Date Vital Result Comment 02/16/2020 11:14am BP Systolic 126 mmHg BP Diastolic 68 mmHg Heart Rate 68 /min Body Temperature 97.4 F Respiratory Rate 18 /min Weight 105.00 lb 2020 2:21pm BP Systolic 162 mmHg BP Diastolic 60 mmHg Heart Rate 72 /min Body Temperature 98.1 F Respiratory Rate 16 /min Height 57 inches 4'9" Weight 107.25 lb slippers on BMI (Body Mass Index) 23.2 kg/m2 Results Test Acquired Date Facility Test Result H/L Range Note Laboratory test 02/16/2020 Witt [facility]) TSH <pending> 0.5-5.0 finding Magnesium <pending> 1.2-2.1 Procedures Date Code Description Status 01/17/2012 [id number] Mammogram Completed 10/22/2009 [id number] Mammogram Completed 10/12/2009 [id number] Bone Mineral Density Test Completed 06/08/2008 [id number] Mammogram Completed 12/10/2006 [id number] Mammogram Completed 11/12/2001 [id number] Colonoscopy Completed Medical Devices Description No Information Available Encounters Type Date Location Provider Dx Diagnosis Office Visit 2020 [facility] Office Temitope [place], R60.0 Localized edema 2:30p Christine I10 Essential (primary) hypertension Assessments Date Code Description Provider 02/16/2020 I10 Essential (primary) hypertension Adry Duncan M.D. 02/16/2020 R60.0 Localized edema Adry Duncan M.D. 02/16/2020 F02.80 Dementia in other diseases classified Adry Duncan M.D. elsewhere without behavioral disturbance 2020 R60.0 Localized edema Christine Pereyra 2020 I10 Essential (primary) hypertension Christine Pereyra 11/27/2019 Z23 Encounter for immunization Adry Colstrip, M.D. Plan of Treatment 02/16/2020 - Adry Duncan M.D.I10 Essential (primary) hypertensionComments:The patient will continue to monitor blood pressure and let me know the blood pressure results if there are readings persistently above 140/90. Goal blood pressure is less than 130/80. Recommend low salt/cardiac diet such as the Mediterranean diet and routine exercise at least 30 minutes a day.Follow up:2 weeks ttlrozxO18.0 Localized edemaComments:add torsemide daily for 1 week then resume every other day dosing; keep leg elevated and wear compression stockings as often as possible, low salt diet discussed wound careF02.80 Dementia in other diseases classified elsewhere without behavioral disturbanceComments: discussed role of medication and when advanced care is neededAllNew Medication: Torsemide 20 mg - 1 po qodComments:Medication Management Patient Understands medications she's taking? Yes No Are there Barriers to Adherence? Yes No Has the patient been asked about herbal supplements and therapies, and OTC meds? Yes No Functional Status Description No Information Available Mental Status Description No Information Available Referrals Description No Information Available
--- NOTE | 2020-02-24 18:11 | ED ---
Syncope/Near Syncope - HPI Summary HPI Summary: This patient is an 89 y/o female presenting to [facility] c/o unwitnessed syncopal episode today. Patient reports today in the afternoon she was sitting in her recliner chair. She states she was trying to stand up from her recliner when she syncopized. Patient notes she had LOC but does not know the duration. She reports she just woke up after she syncopized and was sitting on her recliner. Patient endorses shortness of breath. Denies headaches, blurry vision, chest pain, palpitations, fever, chills, nausea, vomiting, diarrhea. Patient reports her son (who lives with her) was tested for COVID-19 but does not know the results yet. Patient would like to be tested for COVID-19 today. PMHx significant for HTN, heart murmur. Home Medications Medication Instructions Recorded Confirmed Type RX: Triamterene/HCTZ 37.5-25 MG* 1 cap PO DAILY 05/10/18 02/24/20 History [Dyazide CAP*] RX: Torsemide 20 mg PO EVERY OTHER DAY 02/24/20 02/24/20 History cefUROXime axetil [Cefuroxime] 1 cap PO BID 02/24/20 02/24/20 History - History Of Current Complaint Chief Complaint: EDSyncope Time Seen by Provider: 02/24/20 17:52 Hx Obtained From: Patient Onset/Duration: Sudden Onset Context: Unwitnessed, Loss Of Consciousness Activity At Onset: Exertion Aggravating Factor(s): Nothing Alleviating Factor(s): Nothing Associated Signs And Symptoms: Shortness Of Breath, Other - NEGATIVE: headache, blurry vision, chest pain, palpitations, fever, chills, nausea, vomiting, diarrhea. - Allergies/Home Medications Allergies/Adverse Reactions: Allergies Allergy/AdvReac Type Severity Reaction Status Date / Time propoxyphene [From Darvon] AdvReac GI Upset Verified 02/24/20 22:56 Home Medications: Home Medications Triamterene/HCTZ 37.5-25 MG* [Dyazide CAP*] 1 cap PO DAILY 05/10/18 [History Confirmed 02/24/20] Torsemide 20 mg PO EVERY OTHER DAY 02/24/20 [History Confirmed 02/24/20] cefUROXime axetil [Cefuroxime] 250 mg PO BID 02/24/20 [History Confirmed ] PMH/Surg Hx/FS Hx/Imm Hx Cardiovascular History: Reports: Hx Angina, Hx Hypertension, Other Cardiovascular Problems/Disorders - heart murmur Denies: Hx Coronary Artery Disease, Hx Hypercholesterolemia, Hx Myocardial Infarction, Hx Valvular Heart Disease Respiratory History: Denies: Hx Asthma, Hx Chronic Obstructive Pulmonary Disease (COPD) GI History: Reports: Hx Gastroesophageal Reflux Disease, Hx Hiatal Hernia Musculoskeletal History: Reports: Hx Arthritis, Hx Osteoporosis, Other Musculoskeletal History - restless leg syndrome Sensory History: Denies: Hx Contacts or Glasses, Hx Hearing Aid Opthamlomology History: Denies: Hx Contacts or Glasses Neurological History: Reports: Other Neuro Impairments/Disorders - vertigo - Surgical History Surgical History: Yes Surgery Procedure, Year, and Place: Tonsillectomy as child. Appendectomy. Tubal ligation 1966. Angiogram 1996 Infectious Disease History: No Infectious Disease History: Denies: Traveled Outside the [place] in Last 30 Days - Family History Known Family History: Negative: Renal Disease, Blood Disorder - Social History Alcohol Use: None Substance Use Type: Reports: None Smoking Status (MU): Former Smoker Amount Used/How Often: When I was younger. Have You Smoked in the Last Year: No Review of Systems Negative: Fever, Chills Negative: Blurred Vision Negative: Palpitations, Chest Pain Positive: Shortness Of Breath Negative: Vomiting, Diarrhea, Nausea Positive: Syncope. Negative: Headache All Other Systems Reviewed And Are Negative: Yes Physical Exam - Summary Physical Exam Summary: VITAL SIGNS: Reviewed. GENERAL: Patient is a well-developed and nourished female who is lying comfortable in the stretcher. Patient is not in any acute respiratory distress. HEAD AND FACE: No signs of trauma. No ecchymosis, hematomas or skull depressions. No sinus tenderness. EYES: PERRLA, EOMI x 2, No injected conjunctiva, no nystagmus. EARS: Hearing grossly intact. Ear canals and tympanic membranes are within normal limits. MOUTH: Oropharynx within normal limits. NECK: Supple, trachea is midline, no adenopathy, no JVD, no carotid bruit, no c- spine tenderness, neck with full ROM. CHEST: Symmetric, no tenderness at palpation LUNGS: Clear to auscultation bilaterally. No wheezing or crackles. CVS: Regular rate and rhythm, S1 and S2 present, no murmurs or gallops appreciated. ABDOMEN: Soft, non-tender. No signs of distention. No rebound no guarding, and no masses palpated. Bowel sounds are normal. EXTREMITIES: FROM in all major joints, no edema, no cyanosis or clubbing. NEURO: Alert and oriented x 3. No acute neurological deficits. Speech is normal and follows commands. SKIN: Dry and warm GCS: 15 Triage Information Reviewed: Yes Vital Signs On Initial Exam: Initial Vitals Temp Pulse Resp BP Pulse Ox 98.7 F 85 18 138/89 94 02/24/20 17:40 02/24/20 17:40 02/24/20 17:40 02/24/20 17:40 02/24/20 17:40 Vital Signs Reviewed: Yes Procedures - Sedation Patient Received Moderate/Deep Sedation with Procedure: No Diagnostics - Vital Signs Vital Signs Temp Pulse Resp BP Pulse Ox 02/24/20 17:40 98.7 F 85 18 138/89 94 - Laboratory Result Diagrams: 02/24/20 18:03 02/25/20 06:51 Lab Statement: Any lab studies that have been ordered have been reviewed, and results considered in the medical decision making process. - Radiology Chest XR Radiology Interpretation Completed By: ED Physician Summary of Radiographic Findings: No acute process. Pending official radiology report. - CT Brain CT CT Interpretation Completed By: Radiologist Summary of CT Findings: IMPRESSION: 1. No acute intracranial abnormality. 2. Mild cerebral atrophy and chronic microangiopathic changes. Dr. Hammond has reviewed this report. - EKG 1832 Cardiac Rate: NL - at 75 bpm EKG Rhythm: Sinus Rhythm Summary of EKG Findings: EKG at 1832 shows sinus rhythm at rate of [address] elevations. This EKG was interpreted and reviewed by ED physician. Course/Dx Assessment/Plan: This patient is an 89 y/o female presenting to [facility] c/o unwitnessed syncopal episode today. Patient reports today in the afternoon she was sitting in her recliner chair. She states she was trying to stand up from her recliner when she syncopized. Patient notes she had LOC but does not know the duration. She reports she just woke up after she syncopized and was sitting on her recliner. Patient endorses shortness of breath. Denies headaches, blurry vision, chest pain, palpitations, fever, chills, nausea, vomiting, diarrhea. Patient reports her son (who lives with her) was tested for COVID-19 but does not know the results yet. Patient would like to be tested for COVID-19 today. PMHx significant for HTN, heart murmur. In the ED course the patient was placed in a cardiac rehabilitation program director, IV access was obtained, IV fluids started. Past medical records reviewed. Blood test w/o a significant abnormality except for sodium 127, chloride 76, carbon dioxide 37, BUN is 22, creatinine 1.8, glucose 124, troponin 0.3, alkaline phosphatase is 134. Urinalysis is negative for UTI. Chest XR shows no acute process. Head CT impression: No acute intracranial pathology. She was given gentle hydration since she has an increased BUN and creatinine. She was given an aspirin for her increased troponin. I discussed my physical exam and test results with Dr. Alarcon from the hospitalist services and she agrees to admit the patient to her services. The patient is hemodynamically stable, alert and oriented x 3. - Diagnoses Provider Diagnoses: Syncope, Dehydration, Renal failure, Elevated troponin, Hypokalemia - Physician Notifications Discussed Care of Patient With: Silvia Alarcon - hospitalist Time Discussed With Above Provider: 19:48 Instructed by Provider To: Admit As Inpatient - Critical Care Time Critical Care Statement: Critical care time is provided exclusive of any time spent performing procedures. Discharge ED - Sign-Out/Discharge Documenting (check all that apply): Patient Departure - Admit to [facility] [place] - Discharge Plan Condition: Stable Disposition: ADMITTED TO [facility] - Billing Disposition and Condition Condition: STABLE Disposition: Admitted to [facility] - Attestation Statements Document Initiated by Scribe: Yes Documenting Scribe: Debbie Lemus Provider For Whom Jermain is Documenting (Include Credential): Aj Hammond MD Scribe Attestation: Debbie Ravi scribed for Aj Hammond MD on 02/25/20 at 1227. Scribe Documentation Reviewed: Yes Provider Attestation: The documentation as recorded by the Debbie killian accurately reflects the service I personally performed and the decisions made by me, Aj Hammond MD Status of Scribe Document: Viewed
[2020-02-24 19:09] LABS: ABS Lymphocytes 1.5 10^3/ul (1.0-4.8); ABS Monocytes 0.8 10^3/ul (0-0.8); ABS Neutrophils 4.9 10^3/ul (1.5-7.7); Eosinophil % 0.5 %; Hematocrit 41 % (35-47); Lymphocyte % 19.9 %; Mean Corpuscular HGB Conc 36 g/dL (31-36); Mean Corpuscular Hemoglobin 34 pg (27-31); Mean Corpuscular Volume 94 fL (80-97); Mean Platelet Volume 7.9 fL (7.4-10.4); Platelet Count 272 10^3/uL (150-450); Red Blood Count 4.38 10^6 /uL (3.70-4.87); Red Cell Distribution Width 13 % (10-15); White Blood Count 7.3 10^3/uL (3.5-10.8)
[2020-02-24 19:16] LABS: Urine Appearance Clear; Urine Bilirubin Negative (Negative); Urine Blood 1+ (Negative); Urine Color Straw; Urine Glucose Negative (Negative); Urine Ketones Negative (Negative); Urine Nitrite Negative (Negative); Urine Protein Negative (Negative); Urine Specific Gravity 1.004 (1.010-1.030); Urine Urobilinogen Negative (Negative)
[2020-02-24 19:18] LABS: ALT 23 U/L (7-52); Albumin 4.6 g/dL (3.2-5.2); Albumin/Globulin Ratio 1.2 (1-3); Alkaline Phosphatase 134 U/L (34-104); BUN/Creatinine Ratio 23.3 (8-20); Blood Urea Nitrogen 42 mg/dL (6-24); CO2 Carbon Dioxide 37 mmol/L (22-32); Chloride 76 mmol/L (101-111); EGFR African American 32.1 (>60); EGFR Non-African American 26.5 (>60); Globulin 3.7 g/dL (2-4); Glucose 124 mg/dL (70-100); Sodium 127 mmol/L (135-145); Total Protein 8.3 g/dL (6.4-8.9)
[2020-02-24 19:19] LABS: Urine Bacteria Absent (Absent); Urine Red Blood Cell Trace(0-2/hpf) (Absent); Urine White Blood Cell 1+(6-10/hpf) (Absent)
[2020-02-24 19:21] LABS: Troponin I 0.03 ng/mL (<0.03)
[2020-02-24 19:31] LABS: TSH (Thyroid Stimulating Horm) 2.71 mcIU/mL (0.34-5.60)
[2020-02-24] MEDS ORDERED: Aspirin 81 mg CHEW TAB* 81 MG TAB.CHEW PO ONE (19:39)
[2020-02-24] MEDS ORDERED: NS 0.9% 1000 ML** 400 ML IV SCH (19:45)
[2020-02-24 19:56] LABS: AST 37 U/L (13-39); Anion Gap 14 mmol/L (2-11)
[2020-02-24 19:58] LABS: Potassium 2.3 mmol/L (3.5-5.0)
[2020-02-24] MEDS ORDERED: Potassium Chlor TAB* 20 MEQ TAB.ER PO ONE (20:02)
[2020-02-24] MEDS: KCL 10 MEQ/50 ML IVPREMIX* 10 MEQ/50 ML BAG IV SCH ×2 (20:18→23:43)
[2020-02-24 21:22] LABS: C Reactive Protein 1.89 mg/L (<8.01)
--- NOTE | 2020-02-24 21:38 | HP ---
History of Present Illness - History of Present Illness Reason for Visit: Near Syncope History of Present Illness: This is a pleasant 89 F with PMH of Hypertension, Dementia, paroxysmal Atrial Fibrillation, Osteoporosis and Migraine presented with near syncope today morning. Patient is a poor historian and is hard of hearing. According to patient, she was on her usual state of health till this morning but then she started weak. She was in the bathroom when she felt dizzy and almost passed out and she was alone at that time. She sat down on the floor but did not pass out completely. When asked if she got up quickly from toilet or chair then patient reply was "I don't get up quickly these days". She denies loss of consciousness , head injury, vision changes, chest pain, palpitation, nausea, vomiting and abdominal pain. She states that she is having dry cough for last couple of days and is taking Cefuroxime for Bronchitis. She denies fever, chills, productive cough, runny nose, sore throat, diarrhea and loss of taste. She states that her Son who lives with her was tested for COVID but she does not know what the result was. Of note, patient had one episode of syncope in 2018 and according to Cardiology note it was thought to be due to excessive diuretics. In ED, her vitals were stable. Her Blood work showed hyponatremia, hypokalemia, low CL, high Co2, elevated BUN, elevated Creatinine, Anion gap 14, Alk Phosphate 134, Troponin 0.03. Her EKG showed sinus rhythm at 75 bpm with prolonged QTc. Her initial EKG shows one irregular beat which could be artifact but repeat EKG was above. Brain CT was negative for acute intracranial abnormality but has chronic small vessel changes. Chest XRay is normal but official read is pending. - Past Medical History Past Medical History: 1. Hypertension 2. Questionable paroxysmal Atrial Fibrillation. 3. Osteoporosis 4. Migraine 5. Chronic pain 6. GERD 7. Syncope in 2018 - Past Surgical History Past Surgical History: 1. Tubal Ligation - (1966) 2. Tonsillectomy W/ Adenoidectomy - (age 9 Years) 3. Cataract Removal - (1999) 4. Carpal Tunnel Release 5. Appendectomy - (1966) - Past Family History Past Family History: Father: due to OK - (age 82 Years) Mother: due to Natural Causes - age 99 yrs. Children:3 sons / 2 daughters - 1 son nasal carcinoma / hypertension 1 daughter seizures 1 son hypertension Brother 1: Diabetes, Non Insulin Dependent, Heart Disease. Sister 1: due to Pneumonia. Paternal Grandfather: due to OK - age 70's. Maternal Grandmother: due to Pneumonia. Maternal Grandfather: due to Cancer, Colon. - Past Social History Past Social History: Her son lives with her. She gives me a remote tobacco use but is not using it currently. She denies alcohol and recreational drug use. Person to notify is her daughter luna Rider. She is DNR/DNI. Medications: Home Medications Medication Instructions Recorded Confirmed Type Triamterene/HCTZ 37.5-25 MG* 1 cap PO DAILY 05/10/18 02/24/20 History [Dyazide CAP*] Torsemide 20 mg PO EVERY OTHER DAY 02/24/20 02/24/20 History cefUROXime axetil [Cefuroxime] 1 cap PO BID 02/24/20 02/24/20 History This is home medication is according to [facility]. Patient could not give accurate medication. She stated that she is taking Torsemide and Triamterene/HCTZ daily. Allergies/Adverse Reactions: Allergies Allergy/AdvReac Type Severity Reaction Status Date / Time propoxyphene [From Darvon] AdvReac GI Upset Verified 05/10/18 01:00 Review of Systems - Review of Systems Constitutional: Positive: Weakness. Negative: Fever, Chills, Sweats, Malaise, Other Eyes: Negative: Pain, Vision Change, Conjunctivae Inflammation, Eyelid Inflammation, Redness, Other ENT: Negative: Ear Pain, Ear Discharge, Nose Pain, Nose Discharge, Nose Congestion, Mouth Pain, Mouth Swelling, Throat Pain, Throat Swelling, Other Respiratory: Positive: Cough, Dry, Pleuritic Pain Cardiovascular: Positive: Light Headedness. Negative: Chest Pain, Palpitations , Orthopnea, Paroxysmal Noc. Dyspnea, Edema, Other Gastrointestinal: Negative: Nausea, Vomiting, Abdominal Pain, Diarrhea, Constipation, Melena, Hematochezia, Other Genitourinary: Negative: Dysuria, Frequency, Incontinence, Hematuria, Retention , Other Musculoskeletal: Negative: Neck Pain, Shoulder Pain, Arm Pain, Back Pain, Hand Pain, Leg Pain, Foot Pain, Other Skin: Positive: Bruising. Negative: Rash, Lesions, Carlos, Other Neurological/Mental Status: Negative: Weakness, Numbness, Incoordination, Change in Speech, Confusion, Seizures, Other Exam Vital Signs: Vital Signs (72 hours) 02/24/20 02/24/20 02/24/20 17:40 18:08 18:09 Temperature 98.7 F Pulse Rate 85 90 Respiratory 18 Rate Blood Pressure 138/89 169/74 (mmHg) O2 Sat by Pulse 94 98 Oximetry 02/24/20 02/24/20 02/24/20 18:39 19:00 19:16 Temperature Pulse Rate 73 70 87 Respiratory 16 13 Rate Blood Pressure 159/77 115/63 (mmHg) O2 Sat by Pulse 99 98 95 Oximetry 02/24/20 02/24/20 02/24/20 19:21 19:25 19:38 Temperature Pulse Rate 82 71 Respiratory 16 13 Rate Blood Pressure 135/73 135/73 120/73 (mmHg) O2 Sat by Pulse 93 96 Oximetry 02/24/20 02/24/20 02/24/20 20:00 20:08 20:39 Temperature Pulse Rate 70 65 63 Respiratory 14 21 12 Rate Blood Pressure 137/61 187/87 (mmHg) O2 Sat by Pulse 95 98 90 Oximetry Exam: GENERAL APPEARANCE: well looking female in no acute distress. HEENT: Normocephalic and atraumatic. No scleral icterus. Pupils are equal, round , and reactive to light and accommodation NECK: Supple. Trachea is midline. No evidence of thyroid enlargement. No lymphadenopathy or tenderness. CHEST: Symmetric. Nontender to palpation. LUNGS: Breath sounds are equal bilaterally. No added sounds HEART: Tachycardic. Regular rhythm.normal S1 and S2. No murmurs, gallops, or rubs. ABDOMEN: Soft, nondistended and nontender. No rebound and guarding. Normal bowel sound heard. EXTREMITIES: No swelling, cyanosis and clubbing. There is redness on her bilateral lower leg with open wound on left anterior maher but no tenderness. NEUROLOGIC: No focal sensory or motor deficits are noted. Cranial nerves II through XII are intact. Deep tendon reflexes are intact. Result Diagrams: 02/24/20 18:03 02/24/20 18:03 Additional Lab and Data: Laboratory Last Values WBC 7.3 10^3/uL (3.5-10.8) 02/24/20 18:03 RBC 4.38 10^6 /uL (3.70-4.87) 02/24/20 18:03 Hgb 15.0 g/dL (12.0-16.0) 02/24/20 18:03 Hct 41 % (35-47) 02/24/20 18:03 MCV 94 fL (80-97) 02/24/20 18:03 MCH 34 pg (27-31) H 02/24/20 18:03 MCHC 36 g/dL (31-36) 02/24/20 18:03 RDW 13 % (10-15) 02/24/20 18:03 Plt Count 272 10^3/uL (150-450) 02/24/20 18:03 MPV 7.9 fL (7.4-10.4) 02/24/20 18:03 Neut % (Auto) 67.7 % 02/24/20 18:03 Lymph % (Auto) 19.9 % 02/24/20 18:03 [place] % (Auto) 11.3 % 02/24/20 18:03 Eos % (Auto) 0.5 % 02/24/20 18:03 Baso % (Auto) 0.6 % 02/24/20 18:03 Absolute Neuts (auto) 4.9 10^3/ul (1.5-7.7) 02/24/20 18:03 Absolute Lymphs (auto) 1.5 10^3/ul (1.0-4.8) 02/24/20 18:03 Absolute Monos (auto) 0.8 10^3/ul (0-0.8) 02/24/20 18:03 Absolute Eos (auto) 0.0 10^3/ul (0-0.6) 02/24/20 18:03 Absolute Basos (auto) 0.0 10^3/ul (0-0.2) 02/24/20 18: Absolute Nucleated RBC 0.0 10^3/ul 02/24/20 18:03 Nucleated RBC % 0.0 02/24/20 18:03 APTT 31.2 seconds (26.0-38.0) 02/24/20 18:04 Sodium 127 mmol/L (135-145) L 02/24/20 18:03 Potassium 2.3 mmol/L (3.5-5.0) L* 02/24/20 18:03 Chloride 76 mmol/L (101-111) L 02/24/20 18:03 Carbon Dioxide 37 mmol/L (22-32) H 02/24/20 18:03 Anion Gap 14 mmol/L (2-11) H 02/24/20 18:03 BUN 42 mg/dL (6-24) H 02/24/20 18:03 Creatinine 1.80 mg/dL (0.51-0.95) H 02/24/20 18:03 Est GFR ( Amer) 32.1 (>60) 02/24/20 18:03 Est GFR (Non-Af Amer) 26.5 (>60) 02/24/20 18:03 BUN/Creatinine Ratio 23.3 (8-20) H 02/24/20 18:03 Glucose 124 mg/dL (70-100) H 02/24/20 18:03 Lactic Acid 1.3 mmol/L (0.5-2.0) 02/24/20 18:03 Calcium 10.0 mg/dL (8.6-10.3) 02/24/20 18:03 Magnesium 2.0 mg/dL (1.9-2.7) 02/24/20 18:03 Total Bilirubin 1.00 mg/dL (0.2-1.0) 02/24/20 18:03 GGT 18 U/L (9-64.0) 02/24/20 18:03 AST 37 U/L (13-39) 02/24/20 18:03 ALT 23 U/L (7-52) 02/24/20 18:03 Alkaline Phosphatase 134 U/L (34-104) H 02/24/20 18:03 Troponin I 0.03 ng/mL (<0.03) H* 02/24/20 18:03 C-Reactive Protein 1.89 mg/L (<8.01) 02/24/20 18:03 B-Natriuretic Peptide 28 pg/mL (<=100) 02/24/20 18:04 Total Protein 8.3 g/dL (6.4-8.9) 02/24/20 18:03 Albumin 4.6 g/dL (3.2-5.2) 02/24/20 18:03 Globulin 3.7 g/dL (2-4) 02/24/20 18: Albumin/Globulin Ratio 1.2 (1-3) 02/24/20 18: TSH 2.71 mcIU/mL (0.34-5.60) 02/24/20 18:03 Urine Color Straw 02/24/20 18: Urine Appearance Clear 02/24/20 18: Urine pH 7.0 (5-9) 02/24/20 18:03 Ur Specific [place] 1.004 (1.010-1.030) L 02/24/20 18:03 Urine Protein Negative (Negative) 02/24/20 18:03 Urine Ketones Negative (Negative) 02/24/20 18: Urine Blood 1+ (Negative) A 02/24/20 18: Urine Nitrate Negative (Negative) 02/24/20 18: Urine Bilirubin Negative (Negative) 02/24/20 18: Urine Urobilinogen Negative (Negative) 02/24/20 18:03 Ur Leukocyte Esterase Trace (Negative) A 02/24/20 18: Urine WBC (Auto) 1+(6-10/hpf) (Absent) A 02/24/20 18:03 Urine RBC (Auto) Trace(0-2/hpf) (Absent) 02/24/20 18: Urine Bacteria Absent (Absent) 02/24/20 18: Hyaline Casts Present (Absent) A 02/24/20 18: Urine Glucose Negative (Negative) 02/24/20 18:03 Diagnostic Imaging: As above. EKG Data: above Assessment/Plan - Assessment/Plan Assessment: This is pleasant 89 F with PMH of Hypertension, ?pAF, Dementia presented with near syncope while she was on bathroom with no LOC, head injury, palpitation and vision changes. FOund to have elctrolyte abnormalities including HypoNa, HypoK, contraction alkalosis, elevated creatinine. D/D: Dehydration 2/2 diuretic use, Arrhythmia, Orthostatic hypotension, Vasovagal Plan: 1. Near Syncope -Patient is poor historian and baseline dementia -Given her light headedness, weakness and use of diuretics most likely cause is weakness secondary to dehydration secondary to Diuretics. -According to patient she was taking Torsemide and triamterene/HCTZ daily but as per prescription torsemide was supposed to be every other day. -D/D: Orthostatic, Arrhythmia, Vasovagal -Has questionable pAf history so we will put her in tele and monitor -We will obtain orhtostatic vitals -For now her BP is on normal side so we will hold her diuretics. 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 -Her ECHO in 2017 shows normal LV function and no valvular abnormality -She had stress test done in 2018 which was low risk. She used to follow with Dr. Millan and last f/u was in 10/2018. -Her BNP is normal. -Elevated troponin- likely demand; will trend -We will give her IVF and monitor in tele for now. 2. Electrolyte abnormalities -Hyponatremia, severe hypokalemia -Secondary to Diuretics -Hold diuretics -Repleting electrolytes -On IVF -will repeat it 3. COVID rule out -Patient has dry cough and was given Cefuroxime as an outpatient -Her son was tested for COVID and she does not know what result was -COVID swab sent out -CXR looks normal although official read pending. -We will hold her antibiotics for now. 4. Elevated ALP -has history of osetoporosis; so likely from Bone -we will order GGT to rule out liver source 5. Contraction Alkalosis -Secondary to Diuretics -Hold for now 6. Elevated Creatinine -Creatine in 2018 was 1.08 and now it is 1.8 -This could be due to prerenal or could be worsening CKD -will do trial with IVF 7. DVT prophylaxis -High risk -Lovenox 8. DNR Attestation Supervising Physician: Silvia Alarcon MD. Attending/Supervising Physician Comment: 89 yo F with h/o mild dementia presents with near syncope, hyponatremia - symptoms of overdiuresis. Pt is unsure how she had been taking her torsemide. She will be placed on OBV , telem, IVF Attestation: This service has been performed in part by a resident under the direction of a teaching physician.I, Silvia Alarcon MD., performed the service, or was physically present during the critical, or wray portions of the service, furnished by the resident. I participated in the management of the patient.
[2020-02-24] MEDS: Enoxaparin(*) 30 MG/0.3 ML SYR SUBCUT SCH (23:42)
[2020-02-25] MEDS: NS 0.9% 1000 ML** 1,000 ML IV SCH ×2 (02:37→08:41)
[2020-02-25 07:26] LABS: BUN/Creatinine Ratio 24.4 (8-20); Blood Urea Nitrogen 39 mg/dL (6-24); CO2 Carbon Dioxide 33 mmol/L (22-32); Calcium 9.2 mg/dL (8.6-10.3); Chloride 87 mmol/L (101-111); EGFR African American 36.7 (>60); EGFR Non-African American 30.3 (>60); Glucose 108 mg/dL (70-100); Sodium 130 mmol/L (135-145)
[2020-02-25 07:37] LABS: Anion Gap 10 mmol/L (2-11); Potassium 2.7 mmol/L (3.5-5.0); Troponin I 0.04 ng/mL (<0.03)
[2020-02-25] MEDS: cefTRIAXone(*) 1 GM in NS 0.9% 50 ML* 50 ML IVPB SCH (14:31)
[2020-02-25] MEDS: Potassium Chlor TAB* 20 MEQ TAB.ER PO SCH ×2 (14:31→20:21)
--- NOTE | 2020-02-25 17:08 | PN ---
Subjective Date of Service: 02/25/20 Interval History: Feeling slightly better. Still orthostatic.On IVF Family History: Unchanged from Admission Social History: Unchanged from Admission Past Medical History: Unchanged from Admission Objective Active Medications: Enoxaparin Sodium (Lovenox(*)) 30 mg SUBCUT BEDTIME [facility] Last Admin: 02/24/20 23:42 Dose: 30 mg Sodium Chloride (Ns 0.9% 1000 Ml) 1,000 mls @ 100 mls/hr IV PER RATE [facility] Last Admin: 02/25/20 08:41 Dose: 100 mls/hr Ceftriaxone Sodium 1 gm/ (Sodium Chloride) 50 mls @ 100 mls/hr IVPB Q24H [facility] Last Admin: 02/25/20 14:31 Dose: 100 mls/hr Potassium Chloride (Klor Con Er Tab*) 40 meq PO BID [facility] Stop: 02/26/20 14:00 Last Admin: 02/25/20 14:31 Dose: 40 meq Vital Signs - 8 hr 02/25/20 02/25/20 11:15 14:39 Temperature 99.2 F 98.2 F Pulse Rate 62 72 Respiratory 16 16 Rate Blood Pressure 141/59 114/49 (mmHg) O2 Sat by Pulse 100 97 Oximetry Oxygen Devices in Use Now: None Eyes: No Scleral Icterus Ears/Nose/Mouth/Throat: NL Teeth, Lips, Gums Neck: NL Appearance and Movements; NL JVP Respiratory: Symmetrical Chest Expansion and Respiratory Effort Abdominal: NL Sounds; No Tenderness; No Distention Extremities: No Edema Neurological: Alert and Oriented x 3 Result Diagrams: 02/24/20 18:03 02/25/20 06:51 Additional Lab and Data: Laboratory Last Values WBC 7.3 10^3/uL (3.5-10.8) 02/24/20 18:03 RBC 4.38 10^6 /uL (3.70-4.87) 02/24/20 18:03 Hgb 15.0 g/dL (12.0-16.0) 02/24/20 18:03 Hct 41 % (35-47) 02/24/20 18:03 MCV 94 fL (80-97) 02/24/20 18:03 MCH 34 pg (27-31) H 02/24/20 18:03 MCHC 36 g/dL (31-36) 02/24/20 18:03 RDW 13 % (10-15) 02/24/20 18:03 Plt Count 272 10^3/uL (150-450) 02/24/20 18:03 MPV 7.9 fL (7.4-10.4) 02/24/20 18:03 Neut % (Auto) 67.7 % 02/24/20 18:03 Lymph % (Auto) 19.9 % 02/24/20 18:03 [place] % (Auto) 11.3 % 02/24/20 18:03 Eos % (Auto) 0.5 % 02/24/20 18:03 Baso % (Auto) 0.6 % 02/24/20 18:03 Absolute Neuts (auto) 4.9 10^3/ul (1.5-7.7) 02/24/20 18:03 Absolute Lymphs (auto) 1.5 10^3/ul (1.0-4.8) 02/24/20 18:03 Absolute Monos (auto) 0.8 10^3/ul (0-0.8) 02/24/20 18:03 Absolute Eos (auto) 0.0 10^3/ul (0-0.6) 02/24/20 18:03 Absolute Basos (auto) 0.0 10^3/ul (0-0.2) 02/24/20 18:03 Absolute Nucleated RBC 0.0 10^3/ul 02/24/20 18:03 Nucleated RBC % 0.0 02/24/20 18:03 APTT 31.2 seconds (26.0-38.0) 02/24/20 18:04 Sodium 127 mmol/L (135-145) L 02/24/20 18:03 Potassium 2.3 mmol/L (3.5-5.0) L* 02/24/20 18:03 Chloride 76 mmol/L (101-111) L 02/24/20 18:03 Carbon Dioxide 37 mmol/L (22-32) H 02/24/20 18:03 Anion Gap 14 mmol/L (2-11) H 02/24/20 18:03 BUN 42 mg/dL (6-24) H 02/24/20 18:03 Creatinine 1.80 mg/dL (0.51-0.95) H 02/24/20 18:03 Est GFR ( Amer) 32.1 (>60) 02/24/20 18:03 Est GFR (Non-Af Amer) 26.5 (>60) 02/24/20 18:03 BUN/Creatinine Ratio 23.3 (8-20) H 02/24/20 18:03 Glucose 124 mg/dL (70-100) H 02/24/20 18:03 Lactic Acid 1.3 mmol/L (0.5-2.0) 02/24/20 18:03 Calcium 10.0 mg/dL (8.6-10.3) 02/24/20 18:03 Magnesium 2.0 mg/dL (1.9-2.7) 02/24/20 18:03 Total Bilirubin 1.00 mg/dL (0.2-1.0) 02/24/20 18:03 GGT 18 U/L (9-64.0) 02/24/20 18:03 AST 37 U/L (13-39) 02/24/20 18:03 ALT 23 U/L (7-52) 02/24/20 18:03 Alkaline Phosphatase 134 U/L (34-104) H 02/24/20 18:03 Troponin I 0.03 ng/mL (<0.03) H* 02/24/20 18:03 C-Reactive Protein 1.89 mg/L (<8.01) 02/24/20 18:03 B-Natriuretic Peptide 28 pg/mL (<=100) 02/24/20 18:04 Total Protein 8.3 g/dL (6.4-8.9) 02/24/20 18:03 Albumin 4.6 g/dL (3.2-5.2) 02/24/20 18:03 Globulin 3.7 g/dL (2-4) 02/24/20 18:03 Albumin/Globulin Ratio 1.2 (1-3) 02/24/20 18:03 TSH 2.71 mcIU/mL (0.34-5.60) 02/24/20 18:03 Urine Color Straw 02/24/20 18:03 Urine Appearance Clear 02/24/20 18:03 Urine pH 7.0 (5-9) 02/24/20 18:03 Ur Specific [place] 1.004 (1.010-1.030) L 02/24/20 18:03 Urine Protein Negative (Negative) 02/24/20 18:03 Urine Ketones Negative (Negative) 02/24/20 18:03 Urine Blood 1+ (Negative) A 02/24/20 18:03 Urine Nitrate Negative (Negative) 02/24/20 18:03 Urine Bilirubin Negative (Negative) 02/24/20 18:03 Urine Urobilinogen Negative (Negative) 02/24/20 18:03 Ur Leukocyte Esterase Trace (Negative) A 02/24/20 18:03 Urine WBC (Auto) 1+(6-10/hpf) (Absent) A 02/24/20 18:03 Urine RBC (Auto) Trace(0-2/hpf) (Absent) 02/24/20 18: Urine Bacteria Absent (Absent) 02/24/20 18: Hyaline Casts Present (Absent) A 02/24/20 18:03 Urine Glucose Negative (Negative) 02/24/20 18:03 Microbiology and Other Data: Microbiology 02/24/20 18:03 Urine Culture - Final Urine No Growth (<1,000 CFU/mL) Diagnostic Imaging: As above. EKG Data: above Assess/Plan/Problems-Billing Assessment: - Patient Problems (1) Near syncope Current Visit: Yes Status: Acute Comment: orthostatic hypotension in setting of dehydration and likely infection (2) UTI (urinary tract infection) Current Visit: Yes Status: Acute Comment: Repeat Ua and urine culture Freq urination, symptomatic Start Ceftriaxone IVF (3) VIJAY (acute kidney injury) Current Visit: Yes Status: Acute Code(s): N17.9 - ACUTE KIDNEY FAILURE, UNSPECIFIED SNOMED Code(s): 88667152 Comment: Likely prerenal in setting of uti IVF (4) Hypokalemia Current Visit: Yes Status: Acute Code(s): E87.6 - HYPOKALEMIA SNOMED Code( s): 31788050 Comment: Severe hypokalemia K 2.3 despite replacement Only 2.7 today Will replace K KCL 40 meq BID Mg ok Recheck in am Triamtere and diuretics on hold (5) Demand ischemia Current Visit: Yes Status: Acute Code(s): I24.8 - OTHER FORMS OF ACUTE ISCHEMIC HEART DISEASE SNOMED Code(s): 469266353 Comment: With troponin elevation Likely demand ischemia Eval on telemetry (6) URI (upper respiratory infection) Current Visit: Yes Status: Acute Code(s): J06.9 - ACUTE UPPER RESPIRATORY INFECTION, UNSPECIFIED SNOMED Code(s): 88764120 Comment: R/o Covid Pending
[2020-02-25] MEDS: Enoxaparin(*) 30 MG/0.3 ML SYR SUBCUT SCH (20:22)
[2020-02-26 01:15] LABS: Urine Appearance Clear; Urine Bilirubin Negative (Negative); Urine Blood Negative (Negative); Urine Color Yellow; Urine Glucose Negative (Negative); Urine Ketones Negative (Negative); Urine Nitrite Negative (Negative); Urine Protein Negative (Negative); Urine Urobilinogen Negative (Negative)
[2020-02-26 08:03] LABS: CO2 Carbon Dioxide 26 mmol/L (22-32); Calcium 8.8 mg/dL (8.6-10.3); Chloride 98 mmol/L (101-111); Sodium 133 mmol/L (135-145)
[2020-02-26 08:07] LABS: Anion Gap 9 mmol/L (2-11)
[2020-02-26 08:09] LABS: BUN/Creatinine Ratio 30.3 (8-20); Blood Urea Nitrogen 36 mg/dL (6-24); EGFR African American 51.7 (>60); EGFR Non-African American 42.7 (>60); Glucose 97 mg/dL (70-100)
[2020-02-26] MEDS: Potassium Chlor TAB* 20 MEQ TAB.ER PO SCH (09:08)
[2020-02-26 09:41] LABS: ABS Basophils 0.1 10^3/ul (0-0.2); ABS Eosinophils 0.2 10^3/ul (0-0.6); ABS Lymphocytes 1.9 10^3/ul (1.0-4.8); ABS Monocytes 0.7 10^3/ul (0-0.8); ABS Neutrophils 2.6 10^3/ul (1.5-7.7); Eosinophil % 4.5 %; Hematocrit 41 % (35-47); Hemoglobin 14.3 g/dL (12.0-16.0); Lymphocyte % 34.3 %; Mean Corpuscular HGB Conc 35 g/dL (31-36); Mean Corpuscular Hemoglobin 34 pg (27-31); Mean Corpuscular Volume 97 fL (80-97); Mean Platelet Volume 7.9 fL (7.4-10.4); Platelet Count 219 10^3/uL (150-450); Red Blood Count 4.24 10^6 /uL (3.70-4.87); Red Cell Distribution Width 13 % (10-15); White Blood Count 5.4 10^3/uL (3.5-10.8)
[2020-02-26] MEDS: cefTRIAXone(*) 1 GM in NS 0.9% 50 ML* 50 ML IVPB SCH (14:18)
--- NOTE | 2020-02-26 16:12 | PN ---
Subjective Date of Service: 02/26/20 Interval History: Reports feeling better. Feels less weak Family History: Unchanged from Admission Social History: Unchanged from Admission Past Medical History: Unchanged from Admission Objective Active Medications: Enoxaparin Sodium (Lovenox(*)) 30 mg SUBCUT BEDTIME [facility] Last Admin: 02/25/20 20:22 Dose: 30 mg Sodium Chloride (Ns 0.9% 1000 Ml) 1,000 mls @ 100 mls/hr IV PER RATE [facility] Last Admin: 02/25/20 08:41 Dose: 100 mls/hr Ceftriaxone Sodium 1 gm/ (Sodium Chloride) 50 mls @ 100 mls/hr IVPB Q24H [facility] Last Admin: 02/26/20 14:18 Dose: 100 mls/hr Vital Signs - 8 hr 02/26/20 11:15 Temperature 99.1 F Pulse Rate 70 Respiratory 16 Rate Blood Pressure 109/44 (mmHg) O2 Sat by Pulse 96 Oximetry Oxygen Devices in Use Now: None Eyes: No Scleral Icterus Ears/Nose/Mouth/Throat: NL Teeth, Lips, Gums Respiratory: Symmetrical Chest Expansion and Respiratory Effort Cardiovascular: RRR Abdominal: NL Sounds; No Tenderness; No Distention Extremities: No Edema Neurological: Alert and Oriented x 3 Result Diagrams: 02/26/20 09:32 02/26/20 09:32 Additional Lab and Data: Laboratory Last Values WBC 7.3 10^3/uL (3.5-10.8) 02/24/20 18:03 RBC 4.38 10^6 /uL (3.70-4.87) 02/24/20 18:03 Hgb 15.0 g/dL (12.0-16.0) 02/24/20 18:03 Hct 41 % (35-47) 02/24/20 18:03 MCV 94 fL (80-97) 02/24/20 18:03 MCH 34 pg (27-31) H 02/24/20 18:03 MCHC 36 g/dL (31-36) 02/24/20 18:03 RDW 13 % (10-15) 02/24/20 18:03 Plt Count 272 10^3/uL (150-450) 02/24/20 18:03 MPV 7.9 fL (7.4-10.4) 02/24/20 18:03 Neut % (Auto) 67.7 % 02/24/20 18:03 Lymph % (Auto) 19.9 % 02/24/20 18:03 [place] % (Auto) 11.3 % 02/24/20 18:03 Eos % (Auto) 0.5 % 02/24/20 18:03 Baso % (Auto) 0.6 % 02/24/20 18:03 Absolute Neuts (auto) 4.9 10^3/ul (1.5-7.7) 02/24/20 18:03 Absolute Lymphs (auto) 1.5 10^3/ul (1.0-4.8) 02/24/20 18:03 Absolute Monos (auto) 0.8 10^3/ul (0-0.8) 02/24/20 18:03 Absolute Eos (auto) 0.0 10^3/ul (0-0.6) 02/24/20 18:03 Absolute Basos (auto) 0.0 10^3/ul (0-0.2) 02/24/20 18:03 Absolute Nucleated RBC 0.0 10^3/ul 02/24/20 18:03 Nucleated RBC % 0.0 02/24/20 18:03 APTT 31.2 seconds (26.0-38.0) 02/24/20 18:04 Sodium 127 mmol/L (135-145) L 02/24/20 18:03 Potassium 2.3 mmol/L (3.5-5.0) L* 02/24/20 18:03 Chloride 76 mmol/L (101-111) L 02/24/20 18:03 Carbon Dioxide 37 mmol/L (22-32) H 02/24/20 18:03 Anion Gap 14 mmol/L (2-11) H 02/24/20 18:03 BUN 42 mg/dL (6-24) H 02/24/20 18:03 Creatinine 1.80 mg/dL (0.51-0.95) H 02/24/20 18:03 Est GFR ( Amer) 32.1 (>60) 02/24/20 18:03 Est GFR (Non-Af Amer) 26.5 (>60) 02/24/20 18:03 BUN/Creatinine Ratio 23.3 (8-20) H 02/24/20 18:03 Glucose 124 mg/dL (70-100) H 02/24/20 18:03 Lactic Acid 1.3 mmol/L (0.5-2.0) 02/24/20 18:03 Calcium 10.0 mg/dL (8.6-10.3) 02/24/20 18:03 Magnesium 2.0 mg/dL (1.9-2.7) 02/24/20 18:03 Total Bilirubin 1.00 mg/dL (0.2-1.0) 02/24/20 18:03 GGT 18 U/L (9-64.0) 02/24/20 18:03 AST 37 U/L (13-39) 02/24/20 18:03 ALT 23 U/L (7-52) 02/24/20 18:03 Alkaline Phosphatase 134 U/L (34-104) H 02/24/20 18:03 Troponin I 0.03 ng/mL (<0.03) H* 02/24/20 18:03 C-Reactive Protein 1.89 mg/L (<8.01) 02/24/20 18:03 B-Natriuretic Peptide 28 pg/mL (<=100) 02/24/20 18:04 Total Protein 8.3 g/dL (6.4-8.9) 02/24/20 18:03 Albumin 4.6 g/dL (3.2-5.2) 02/24/20 18: Globulin 3.7 g/dL (2-4) 02/24/20 18: Albumin/Globulin Ratio 1.2 (1-3) 02/24/20 18: TSH 2.71 mcIU/mL (0.34-5.60) 02/24/20 18:03 Urine Color Straw 02/24/20 18: Urine Appearance Clear 02/24/20 18: Urine pH 7.0 (5-9) 02/24/20 18: Ur Specific [place] 1.004 (1.010-1.030) L 02/24/20 18:03 Urine Protein Negative (Negative) 02/24/20 18: Urine Ketones Negative (Negative) 02/24/20 18: Urine Blood 1+ (Negative) A 02/24/20 18: Urine Nitrate Negative (Negative) 02/24/20 18:03 Urine Bilirubin Negative (Negative) 02/24/20 18:03 Urine Urobilinogen Negative (Negative) 02/24/20 18:03 Ur Leukocyte Esterase Trace (Negative) A 02/24/20 18:03 Urine WBC (Auto) 1+(6-10/hpf) (Absent) A 02/24/20 18:03 Urine RBC (Auto) Trace(0-2/hpf) (Absent) 02/24/20 18:03 Urine Bacteria Absent (Absent) 02/24/20 18:03 Hyaline Casts Present (Absent) A 02/24/20 18:03 Urine Glucose Negative (Negative) 02/24/20 18:03 Microbiology and Other Data: Microbiology 02/24/20 18:03 Urine Culture - Final Urine No Growth (<1,000 CFU/mL) Diagnostic Imaging: As above. EKG Data: above Assess/Plan/Problems-Billing Assessment: - Patient Problems (1) Near syncope Current Visit: Yes Status: Acute Comment: orthostatic hypotension in setting of dehydration and likely infection (2) UTI (urinary tract infection) Current Visit: Yes Status: Acute Comment: Repeat Ua and urine culture Freq urination, symptomatic Started Ceftriaxone IVF (3) VIJAY (acute kidney injury) Current Visit: Yes Status: Acute Code(s): N17.9 - ACUTE KIDNEY FAILURE, UNSPECIFIED SNOMED Code(s): 60505959 Comment: Likely prerenal in setting of uti IVF Improving (4) Hypokalemia Current Visit: Yes Status: Acute Code(s): E87.6 - HYPOKALEMIA SNOMED Code( s): 59722494 Comment: Severe hypokalemia K 2.3 despite replacement Then 2.7 Will replace K KCL 40 meq BID Mg ok Recheck in am Triamtere and diuretics on hold (5) Demand ischemia Current Visit: Yes Status: Acute Code(s): I24.8 - OTHER FORMS OF ACUTE ISCHEMIC HEART DISEASE SNOMED Code(s): 930020655 Comment: With troponin elevation Likely demand ischemia Eval on telemetry (6) URI (upper respiratory infection) Current Visit: Yes Status: Acute Code(s): J06.9 - ACUTE UPPER RESPIRATORY INFECTION, UNSPECIFIED SNOMED Code(s): 10056732 Comment: R/o Covid Pending
[2020-02-26] MEDS: Enoxaparin(*) 30 MG/0.3 ML SYR SUBCUT SCH (20:30)
[2020-02-27] MEDS: NS 0.9% 1000 ML** 1,000 ML IV SCH (00:32)
[2020-02-27 06:08] LABS: BUN/Creatinine Ratio 30.3 (8-20); Calcium 8.4 mg/dL (8.6-10.3); EGFR African American 57.2 (>60); EGFR Non-African American 47.3 (>60); Potassium 4.6 mmol/L (3.5-5.0)
[2020-02-27 06:09] LABS: ABS Eosinophils 0.3 10^3/ul (0-0.6); ABS Lymphocytes 3.1 10^3/ul (1.0-4.8); ABS Monocytes 0.7 10^3/ul (0-0.8); ABS Neutrophils 2.9 10^3/ul (1.5-7.7); Eosinophil % 4.9 %; Hematocrit 38 % (35-47); Hemoglobin 13.1 g/dL (12.0-16.0); Lymphocyte % 43.5 %; Mean Corpuscular HGB Conc 34 g/dL (31-36); Mean Corpuscular Hemoglobin 34 pg (27-31); Mean Corpuscular Volume 99 fL (80-97); Mean Platelet Volume 8.1 fL (7.4-10.4); Nucleated Red Blood Cells % 0.1; Platelet Count 198 10^3/uL (150-450); Red Blood Count 3.83 10^6 /uL (3.70-4.87); Red Cell Distribution Width 13 % (10-15); White Blood Count 7.1 10^3/uL (3.5-10.8)
[2020-02-27] MEDS: cefTRIAXone(*) 1 GM in NS 0.9% 50 ML* 50 ML IVPB SCH (14:20)
--- NOTE | 2020-02-27 15:30 | DS ---
DISCHARGE SUMMARY: DATE OF ADMISSION: 02/24/20 DATE OF DISCHARGE: 02/27/20 PRIMARY DIAGNOSES: 1. Near syncope. 2. Urinary tract infection. 3. Acute kidney injury. 4. Severe hypokalemia. 5. Demand ischemia. 6. Upper respiratory infection. SECONDARY DIAGNOSES: 1. Hypertension. 2. Osteoporosis. 3. Questionable paroxysmal atrial fibrillation. 4. Migraine. 5. Chronic pain. 6. Gastroesophageal reflux disease. 7. Syncope in 2107. HOSPITAL COURSE: An 89-year-old female with past medical history of hypertension, dementia, paroxysm al AFib, osteoporosis, and migraine, came into the hospital after a near syncopal episode. Please re marichuy to the history and physical for full details. Son, who lives with her, was also tested for COVID . Results of which are not available at this time. The patient was noted to be hyponatremic, hypoka lemic, and VIJAY with mild elevation in troponin. The patient also was dizzy and noted to have orthost atic hypotension. In light of all this, the patient was admitted to the hospital. The patient was o n 2 diuretics at home, torsemide that she takes every other day and triamterene and hydrochlorothiazi de. The patient's initial potassium was only noted to be 2.3. Her diuretics were held. The patient was hydrated with IV fluids. The patient's syncope was thought to be secondary to vasovagal in natu re. Her blood pressure was also on the low normal side. The patient's troponin was noted to be 0.04 . Minimal elevation was thought to be secondary to demand ischemia with hydration and repletion of h er potassium, the patient improved. The patient's creation was also noted to be elevated at 1.8 at t jovanna of admission in the setting of dehydration. The patient's creatinine at time of discharge noted to be 1.03. The patient's hyponatremia has also improved. The patient was checked for COVID in [facility] t of her possible exposure and symptoms. The patient's COIVD was noted to be negative. The patient, however, was noted to have urinary tract infection and was treated with IV ceftriaxone. Repeat urin e shows that her urinalysis is improved. The patient's symptoms also improved with IV antibiotic kalani atment at time of discharge. The patient is being discharged on 3 days of p.o. Ceftin. Vitals and l abs noted to be stable at time of discharge. LABORATORY DATA: WBC 7.1, hemoglobin 13.1, hematocrit 38, platelets noted to be 198. Sodium 134, po tassium 4.6, chloride 104, CO2 of 26, BUN 33, creatinine 1.09. PHYSICAL EXAMINATION: Vitals: Temperature 98, pulse 63, respiratory rate 16, oxygen saturation 100% on room air, blood pressure 113/37. HEENT: NCAT. Heart: S1, S2 present. Regular at the time of e xam. Lungs: Clear to auscultation. Abdomen: Soft. Extremities: No edema. Neuro: Alert and orie nted. MEDICATION LIST: 1. Ceftin 250 mg p.o. b.i.d. 2. Her home diuretics had been held at this time. CONDITION AT THE TIME OF DISCHARGE: Stable. DISPOSITION: Home. INSTRUCTIONS: 1. The patient to follow up with her PCP within a week. 2. The patient to discuss her blood pressure and diuretic regimen with her PCP. The patient to have a BMP in 1 week and further continuation of diuretics for her PCP's discretion based on blood pressur e check and electrolytes. TIME SPENT: Total time spent on discharge is equal to 50 minutes. [id number]/[facility] #: [id number]
[2020-02-27 17:48] VITALS: BP 137/54
== END 2020-02-27 17:18 | disposition home or self-care (01) | DRG 312 ==
LOC: ED 17:34 → MED 20:35 → UNDOADMOB 20:35 → OBSVTOIN 02-25 13:30 → MEDTELE 02-27 00:15
PROVIDERS: ADMIT Internal Medicine; ATTEND Internal Medicine
DX: I95.1 Orthostatic hypotension (principal); N39.0 Urinary tract infection, site not specified; N17.9 Acute kidney failure, unspecified; I24.8 Other forms of acute ischemic heart disease; E87.1 Hypo-osmolality and hyponatremia; E87.6 Hypokalemia; J06.9 Acute upper respiratory infection, unspecified; I10 Essential (primary) hypertension; M81.0 Age-related osteoporosis without current pathological fracture; I48.0 Paroxysmal atrial fibrillation; G43.909 Migraine, unspecified, not intractable, without status migrainosus; Z66 Do not resuscitate; G89.29 Other chronic pain; K21.9 Gastro-esophageal reflux disease without esophagitis; F03.90 Unspecified dementia, unspecified severity, without behavioral disturbance, psychotic disturbance, mood disturbance, and anxiety; E86.0 Dehydration; R74.8 Abnormal levels of other serum enzymes; Z03.818 Encounter for observation for suspected exposure to other biological agents ruled out; Z82.49 Family history of ischemic heart disease and other diseases of the circulatory system; Z80.2 Family history of malignant neoplasm of other respiratory and intrathoracic organs; Z87.891 Personal history of nicotine dependence; Z79.899 Other long term (current) drug therapy; Z88.8 Allergy status to other drugs, medicaments and biological substances
CPT/HCPCS: 36415; 70450; 71045; 80048; 80053; 81003; 81015; 82977; 83605; 83735; 83880; 84443; 84484; 85025; 85730; 86140; 87086; 87635; 93005; 99284; A9270-GY; G2023; J0696; J1650; J3480

== ENCOUNTER 2020-04-29 01:57 | Observation (INO) ==
[2020-04-29 03:00] LABS: ABS Basophils 0.1 10^3/ul (0-0.2); ABS Eosinophils 0.1 10^3/ul (0-0.6); ABS Lymphocytes 1.5 10^3/ul (1.0-4.8); ABS Monocytes 1.1 10^3/ul (0-0.8); Eosinophil % 0.6 %; Hematocrit 36 % (35-47); Lymphocyte % 17.1 %; Mean Corpuscular HGB Conc 36 g/dL (31-36); Mean Corpuscular Hemoglobin 34 pg (27-31); Mean Corpuscular Volume 95 fL (80-97); Mean Platelet Volume 8.4 fL (7.4-10.4); Nucleated Red Blood Cells % 0.1; Platelet Count 262 10^3/uL (150-450); Red Blood Count 3.83 10^6 /uL (3.70-4.87); Red Cell Distribution Width 13 % (10-15); White Blood Count 8.6 10^3/uL (3.5-10.8)
[2020-04-29 03:06] LABS: INR 1.04 (0.82-1.09)
[2020-04-29 03:23] LABS: Albumin 4.2 g/dL (3.2-5.2); Albumin/Globulin Ratio 1.2 (1-3); BUN/Creatinine Ratio 36.2 (8-20); Calcium 9.8 mg/dL (8.6-10.3); EGFR African American 42.5 (>60); EGFR Non-African American 35.1 (>60); Globulin 3.5 g/dL (2-4); Magnesium 2.3 mg/dL (1.9-2.7); Total Bilirubin 0.7 mg/dL (0.2-1.0); Total Protein 7.7 g/dL (6.4-8.9)
[2020-04-29 03:25] LABS: Troponin I 0.01 ng/mL (<0.03)
[2020-04-29 03:38] LABS: Potassium 2.6 mmol/L (3.5-5.0); TSH (Thyroid Stimulating Horm) 2.7 mcIU/mL (0.34-5.60)
[2020-04-29] MEDS ORDERED: Potassium Chlor 10 meq TAB PO ONE (03:42)
[2020-04-29] MEDS ORDERED: NS 0.9% 500 ml BAG 500 ML IV ONE (03:57)
[2020-04-29 04:50] LABS: Urine Appearance Clear; Urine Bilirubin Negative (Negative); Urine Blood Negative (Negative); Urine Color Yellow; Urine Glucose Negative (Negative); Urine Ketones Negative (Negative); Urine Nitrite Negative (Negative); Urine Protein Negative (Negative); Urine Specific Gravity 1.008 (1.010-1.030); Urine Urobilinogen Negative (Negative)
[2020-04-29 05:11] LABS: Urine Bacteria Absent (Absent); Urine Red Blood Cell Trace(0-2/hpf) (Absent); Urine Squamous Epithelial Cell Present (Absent); Urine White Blood Cell Trace(0-5/hpf) (Absent)
[2020-04-29 06:42] LABS: Albumin 4.2 g/dL (3.2-5.2); Albumin/Globulin Ratio 1.3 (1-3); BUN/Creatinine Ratio 40.2 (8-20); Calcium 9.6 mg/dL (8.6-10.3); EGFR African American 50.2 (>60); EGFR Non-African American 41.5 (>60); Globulin 3.3 g/dL (2-4); Total Bilirubin 0.7 mg/dL (0.2-1.0); Total Protein 7.5 g/dL (6.4-8.9)
[2020-04-29 06:44] LABS: Potassium 2.4 mmol/L (3.5-5.0); Troponin I 0.02 ng/mL (<0.03)
[2020-04-29] MEDS: KCL 10 MEQ/50 ML IVPREMIX 10 MEQ/50 ML BAG IV SCH ×4 (07:47→12:20)
[2020-04-29] MEDS: NS 0.9% 500 ml BAG 500 ML IV ONE ×2 (11:10→11:12)
[2020-04-29 16:26] LABS: BUN/Creatinine Ratio 39.6 (8-20); Calcium 8.7 mg/dL (8.6-10.3); EGFR African American 62.4 (>60); EGFR Non-African American 51.6 (>60)
[2020-04-29 16:29] LABS: Potassium 2.6 mmol/L (3.5-5.0)
[2020-04-29] MEDS: Potassium Chloride LIQUID 20 MEQ/15 ML LIQUID PO SCH ×2 (17:07→20:30)
[2020-04-29] MEDS ORDERED: Enoxaparin 30 MG/0.3 ML SYR(*) SUBCUT SCH (21:00)
[2020-04-30 06:16] LABS: BUN/Creatinine Ratio 37.3 (8-20); Calcium 8.9 mg/dL (8.6-10.3); EGFR African American 61.7 (>60); Potassium 3.1 mmol/L (3.5-5.0)
[2020-04-30] MEDS ORDERED: Potassium Chloride LIQUID 20 MEQ/15 ML LIQUID PO ONE (07:16)
[2020-04-30 12:32] LABS: Potassium 3.7 mmol/L (3.5-5.0)
[2020-04-30 12:48] VITALS: BP 124/45
== END 2020-04-30 15:45 | disposition home or self-care (01) ==
LOC: MEDTELE 01:57 → ED 01:57 → MEDTELE 09:59
PROVIDERS: ADMIT Hospitalist; ATTEND Hospitalist